=== PATIENT | male | born 1930 | race Caucasian/White ===

== ENCOUNTER 2018-02-10 14:36 | Inpatient (IN) | payer MEDICARE, BC ==
[2018-02-10] MEDS ORDERED: SODIUM CHLORIDE 0.9% 500 ML IV ONE (15:04)
[2018-02-10] MEDS ORDERED: SODIUM CHLORIDE 0.9% 1,000 ML IV ONE (15:04)
--- NOTE | 2018-02-10 15:07 | ED ---
General Adult HPI - General Chief complaint: Recheck/Abnormal Lab/Rx Stated complaint: Abnormal labs Time Seen by Provider: 02/10/18 14:53 Source: patient, RN notes reviewed, old records reviewed Mode of arrival: wheelchair Limitations: no limitations - History of Present Illness Initial comments: 87-year-old male presents for evaluation of abnormal outpatient labs. Patient was told to present to the emergency department. He is uncertain of what labs were abnormal. He has recent history of bladder mass status post radiation. He is not currently on chemo or radiation for this. He states he was seen by urology and had cystoscopy which was reported as normal. Patient has had no chest pain or shortness of breath. No fever or chills. He has urinated this morning however he states this was low volume. According to his he has not been eating and drinking well. No history of vomiting or diarrhea. No history of hematuria or dysuria. - Related Data Home Medications Medication Instructions Recorded Confirmed Aspirin EC [Ecotrin Low Dose] 81 mg PO DAILY 08/11/17 02/10/18 Atorvastatin [Lipitor] 40 mg PO HS 08/11/17 02/10/18 Benazepril HCl 20 mg PO DAILY 08/11/17 02/10/18 Donepezil [Aricept] 10 mg PO HS 08/11/17 02/10/18 Omeprazole 20 mg PO HS 08/11/17 02/10/18 amLODIPine [Norvasc] 5 mg PO HS 08/11/17 02/10/18 FLUoxetine HCL [PROzac] 10 mg PO DAILY 02/10/18 02/10/18 Ferrous Sulfate [Feosol] 325 mg PO DAILY 02/10/18 02/10/18 Previous Rx's Medication Instructions Recorded Multivitamins, Thera [Multivitamin] 1 tab PO DAILY #30 tablet 08/17/17 Thiamine [Vitamin B-1] 100 mg PO DAILY #30 tablet 08/17/17 Allergies Allergy/AdvReac Type Severity Reaction Status Date / Time Penicillins Allergy Swelling Verified 02/10/18 15:14 Review of Systems ROS Statement: Those systems with pertinent positive or pertinent negative responses have been documented in the HPI. ROS Other: All systems not noted in ROS Statement are negative. 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 but not sure which one-does'nt use any eye drops tumor on bladder History of Any Multi-Drug Resistant Organisms: None Reported Additional Past Surgical History / Comment(s): cataract removal Past Anesthesia/Blood Transfusion Reactions: No Reported Reaction Past Psychological History: No Psychological Hx Reported Smoking Status: Former smoker Past Alcohol Use History: Occasional Past Drug Use History: None Reported - Past Family History Mother Family Medical History: Cancer Additional Family Medical History / Comment(s): leukemia and "heart problems" Father Family Medical History: Coronary Artery Disease (CAD) Additional Family Medical History / Comment(s): "heart problems" General Exam Limitations: no limitations General appearance: alert, in no apparent distress Head exam: Present: atraumatic, normocephalic Eye exam: Present: normal appearance, PERRL, EOMI ENT exam: Present: normal exam Neck exam: Present: normal inspection. Absent: tenderness, meningismus Respiratory exam: Present: normal lung sounds bilaterally. Absent: respiratory distress, wheezes Cardiovascular Exam: Present: regular rate, normal rhythm GI/Abdominal exam: Present: soft. Absent: distended, tenderness, guarding Extremities exam: Present: normal inspection, normal capillary refill. Absent: pedal edema Neurological exam: Present: alert, oriented X3, CN II-XII intact. Absent: motor sensory deficit Psychiatric exam: Present: depressed, flat affect Skin exam: Present: warm, dry, intact. Absent: cyanosis, diaphoretic Course Vital Signs 02/10/18 14:44 Temperature 96.3 F L Pulse Rate 78 Respiratory 16 Rate Blood Pressure 96/50 O2 Sat by Pulse 92 L Oximetry EKG Findings - EKG Comments: EKG Findings:: EKG: Sinus bradycardia, rate of 51, MO interval 138, QRS duration 86, QTC 361 and is hyperacute T waves in the precordial leads. Medical Decision Making - Medical Decision Making Bedside ultrasound shows nondistended urinary bladder. 87-year-old male presenting with abnormal outpatient labs. His labs are repeated, do show a acute renal failure with a creatinine of 7.4, baseline of 2.4, BUNs elevated at 101. Patient has hyperkalemia at 6.2, with associated EKG changes. CO2 is low secondary to uremia. Chest x-ray clear. Bedside ultrasound shows a nondistended bladder, formal ultrasound gallbladder and kidneys will be obtained and is pending. Patient is given IV hydration, albuterol, Kayexalate, and calcium gluconate for hyperkalemia. Case discussed with Dr. Lin who will accept the admission. Patient will be admitted to [facility] on telemetry. Repeat laboratory studies will be obtained in the morning. - Lab Data Result diagrams: 02/10/18 15:31 02/10/18 15:31 Lab Results 02/10/18 02/10/18 02/10/18 Range/Units 15:31 15:31 15:31 WBC 3.4 L (3.8-10.6) k/uL RBC 3.46 L (4.30-5.90) m/uL Hgb 11.4 L (13.0-17.5) gm/dL Hct 35.5 L (39.0-53.0) % MCV 102.7 H (80.0-100.0) fL MCH 33.0 (25.0-35.0) pg MCHC 32.1 (31.0-37.0) g/dL RDW 14.0 (11.5-15.5) % Plt Count 107 L (150-450) k/uL Neutrophils % 81 % Lymphocytes % 8 % Monocytes % 7 % Eosinophils % 1 % Basophils % 0 % Neutrophils # 2.7 (1.3-7.7) k/uL Lymphocytes # 0.3 L (1.0-4.8) k/uL Monocytes # 0.2 (0-1.0) k/uL Eosinophils # 0.1 (0-0.7) k/uL Basophils # 0.0 (0-0.2) k/uL Macrocytosis Slight Sodium 143 (137-145) mmol/L Potassium 6.2 H* (3.5-5.1) mmol/L Chloride 112 H (98-107) mmol/L Carbon Dioxide 14 L (22-30) mmol/L Anion Gap 17 mmol/L BUN 101 H* (9-20) mg/dL Creatinine 7.40 H* (0.66-1.25) mg/dL Est GFR (CKD-EPI)AfAm 7 (>60 ml/min/1.73 sqM) Est GFR (CKD-EPI)NonAf 6 (>60 ml/min/1.73 sqM) Glucose 192 H (74-99) mg/dL Plasma Lactic Acid Chava 0.6 L (0.7-2.0) mmol/L Calcium 10.4 H (8.4-10.2) mg/dL Phosphorus 4.6 H (2.5-4.5) mg/dL Magnesium 1.9 (1.6-2.3) mg/dL Total Bilirubin 0.2 (0.2-1.3) mg/dL AST 16 L (17-59) U/L ALT 34 (21-72) U/L Alkaline Phosphatase 90 (38-126) U/L NT-Pro-B Natriuret Pep pg/mL Total Protein 6.5 (6.3-8.2) g/dL Albumin 3.9 (3.5-5.0) g/dL 02/10/18 Range/Units 15:31 WBC (3.8-10.6) k/uL RBC (4.30-5.90) m/uL Hgb (13.0-17.5) gm/dL Hct (39.0-53.0) % MCV (80.0-100.0) fL MCH (25.0-35.0) pg MCHC (31.0-37.0) g/dL RDW (11.5-15.5) % Plt Count (150-450) k/uL Neutrophils % % Lymphocytes % % Monocytes % % Eosinophils % % Basophils % % Neutrophils # (1.3-7.7) k/uL Lymphocytes # (1.0-4.8) k/uL Monocytes # (0-1.0) k/uL Eosinophils # (0-0.7) k/uL Basophils # (0-0.2) k/uL Macrocytosis Sodium (137-145) mmol/L Potassium (3.5-5.1) mmol/L Chloride (98-107) mmol/L Carbon Dioxide (22-30) mmol/L Anion Gap mmol/L BUN (9-20) mg/dL Creatinine (0.66-1.25) mg/dL Est GFR (CKD-EPI)AfAm (>60 ml/min/1.73 sqM) Est GFR (CKD-EPI)NonAf (>60 ml/min/1.73 sqM) Glucose (74-99) mg/dL Plasma Lactic Acid Chava (0.7-2.0) mmol/L Calcium (8.4-10.2) mg/dL Phosphorus (2.5-4.5) mg/dL Magnesium (1.6-2.3) mg/dL Total Bilirubin (0.2-1.3) mg/dL AST (17-59) U/L ALT (21-72) U/L Alkaline Phosphatase (38-126) U/L NT-Pro-B Natriuret Pep 90 pg/mL Total Protein (6.3-8.2) g/dL Albumin (3.5-5.0) g/dL Critical Care Time Critical Care Time: Yes Total Critical Care Time: 35 Disposition Clinical Impression: Acute renal failure, Hyperkalemia Disposition: ADMITTED IP TO THIS [facility] Condition: Serious Is patient prescribed a controlled substance at d/c from ED?: No Referrals: Latasha Harris MD [Primary Care Provider] - 1-2 days Decision to Admit Reason: Admit from EC Decision Date: 02/10/18 Decision Time: 16:39
[2018-02-10] MEDS: SODIUM CHLORIDE 0.9% 1,000 ML IV SCH ×3 (15:42→21:47)
[2018-02-10 15:53] LABS: Basophils % (A) 0 %; Eosinophils # (A) 0.1 k/uL (0-0.7); Eosinophils % (A) 1 %; HCT 35.5 % (39.0-53.0); HGB 11.4 gm/dL (13.0-17.5); Lymphocytes # (A) 0.3 k/uL (1.0-4.8); Lymphocytes % (A) 8 %; MCHC 32.1 g/dL (31.0-37.0); MCV 102.7 fL (80.0-100.0); Macrocytosis Slight; Mean Platelet Volume 7.3; Monocytes # (A) 0.2 k/uL (0-1.0); Monocytes % (A) 7 %; Neutrophils # (A) 2.7 k/uL (1.3-7.7); Neutrophils % (A) 81 %; Platelet Count 107 k/uL (150-450); RBC 3.46 m/uL (4.30-5.90); WBC 3.4 k/uL (3.8-10.6)
[2018-02-10 16:08] LABS: Albumin 3.9 g/dL (3.5-5.0); Calcium 10.4 mg/dL (8.4-10.2); Magnesium 1.9 mg/dL (1.6-2.3); Phosphorus 4.6 mg/dL (2.5-4.5); Total Bilirubin 0.2 mg/dL (0.2-1.3); Total Protein 6.5 g/dL (6.3-8.2)
[2018-02-10 16:10] LABS: Potassium 6.2 mmol/L (3.5-5.1)
[2018-02-10 16:14] LABS: Partial Thromboplastin Time 20.6 sec (22.0-30.0); Prothrombin Time 9.6 sec (9.0-12.0)
[2018-02-10] MEDS ORDERED: ALBUTEROL NEB (CONC) 2.5 MG/0.5 ML INHALATION ONE (16:20)
[2018-02-10] MEDS ORDERED: CALCIUM CHLORIDE 1,000 MG in SODIUM CHLORIDE 0.9% 100 ML IV ONE (16:20)
[2018-02-10] MEDS ORDERED: SODIUM POLYSTYRENE SULFONATE 15 GM/60 ML BOTTLE PO ONE (16:20)
--- NOTE | 2018-02-10 16:25 | XR ---
EXAMINATION TYPE: XR chest 2V DATE OF EXAM: 02/10/2018 COMPARISON: None HISTORY: 87-year-old male with weakness TECHNIQUE: PA and lateral views FINDINGS: Heart normal size. Mild elongation thoracic aorta. No consolidation or pleural effusion. IMPRESSION: No acute cardiopulmonary process.
[2018-02-10] MEDS ORDERED: ACETAMINOPHEN TAB 325 MG TAB PO PRN (16:34)
[2018-02-10] MEDS ORDERED: NALOXONE 0.4 MG/ML 1 ML VIAL IV PRN (16:34)
--- NOTE | 2018-02-10 17:53 | HP ---
HISTORY AND PHYSICAL DATE OF SERVICE: 02/10/2018 CHIEF COMPLAINT: Abnormal labs and weakness. HISTORY OF PRESENT ILLNESS: This 87-year-old gentleman with a past medical history of multiple medical problems including dementia, history of hypertension, history of prostate disease, also had bladder cancer. The patient had radiation treatment recently, the patient was also evaluated by Dr. Valdivia from Urology. The bladder was found to be small. The patient apparently was losing appetite and has diminished food intake and fluid intake according to the . The patient was feeling tired and weak. The patient taken to Dr. Harris's office. Because of abnormal labs the patient was transferred to the emergency room at this time at [facility]. The creatinine was found to be 7.40, baseline is around 3, and potassium 6.9, indicating severe hypokalemia. Insulin glucose regimen as well as albuterol updrafts as well as Kayexalate has been given. The patient is being admitted for evaluation and treatment. Urine output is markedly reduced. PAST MEDICAL HISTORY: Dementia, history of hypertension, hyperlipidemia, memory impairment. MEDICATIONS: Home medications are reviewed and include: 1. Norvasc 5 mg p.o. at bedtime. 2. Imodium. 3. Vitamin B1, 100 mg daily. 4. Omeprazole 20 mg. 5. Iron sulfate 325 mg daily. 6. Prozac 10 mg daily. 7. Aricept 10 mg at bedtime. 8. Benazepril 20 mg daily. 9. Lipitor 40 mg daily. 10.Ecotrin 81 mg daily. ALLERGIES: PENICILLIN. FAMILY HISTORY: History of cancer, leukemia, heart problems in the family. SOCIAL HISTORY: Previous history of smoking. Occasional alcohol intake. REVIEW OF SYSTEMS: ENT: Diminished hearing and vision. CARDIOVASCULAR: None. RESPIRATORY: As mentioned. GI: As mentioned. : As mentioned. ALLERGY/IMMUNOLOGY: No asthma or hayfever. MUSCULOSKELETAL: As mentioned earlier. HEMATOLOGY/ONCOLOGY: As mentioned earlier. ENDOCRINE: No history of diabetes or hypertension. CONSTITUTIONAL: As mentioned. DERMATOLOGIC: As mentioned. PSYCH: As mentioned. PHYSICAL EXAMINATION: GENERAL: Alert, oriented x2. Pulse 78, blood pressure 90/50, respirations 16, temperature 96.8, pulse ox 98% on 2 L nasal cannula. HEENT: Conjunctivae normal. Oral mucosa dry. NECK: No jugular venous distention. No lymph node enlargement. CARDIOVASCULAR: S1 and S2 muffled. LUNGS: Breath sounds diminished at the bases. Few scattered rhonchi and crackles. ABDOMEN: Soft, mild diffuse distention present. No guarding. No rigidity. No mass palpable. LEGS: No edema, no swelling. NERVOUS SYSTEM: Higher functions as mentioned earlier. Moves all four limbs. No focal deficits. SKIN: No rashes. LAB STUDIES: WBC 3.8, hemoglobin 7.5, MCV 102. Sodium 140, potassium 6.2, creatinine 7.4. ASSESSMENT: 1. Acute renal failure possible acute on chronic renal failure with prerenal factors and acute tubular necrosis secondary to diminished p.o. intake. 2. Hyperkalemia secondary to acute renal failure. 3. Metabolic acidosis secondary to renal failure. 4. Mild pancytopenia. 5. Bladder cancer. 6. Increased MCV. 7. History of hypertension. 8. Hyperlipidemia next history of dementia. 9. History of cataracts. 10.History of glaucoma. 11.Mild to moderate protein calorie malnutrition, BMI of 19.2. 12.FULL CODE. RECOMMENDATIONS: This 87-year-old gentleman who presented with multiple complex medical issues. We will monitor the patient closely, continue the current medications and symptomatic treatment. We will initiate IV fluids cautiously. Also continue to monitor closely. Nephrology evaluation. Otherwise bladder scan as mentioned earlier. I would also recommend ultrasound of the abdomen to rule out the possibility of hydronephrosis. Repeat labs. Resume home medications. Avoid nephrotoxic medications. Prognosis guarded because of multiple complex medical issues. Discussed with the patient and family who understand. Further recommendation to follow. MMODL / IJN: [id number] /
[2018-02-10] MEDS ORDERED: NON-FORMULARY DRUG (Omeprazole [Omeprazole] 20 MG) PO SCH (21:00)
--- NOTE | 2018-02-10 21:08 | US ---
EXAMINATION TYPE: US renals and bladder DATE OF EXAM: 02/10/2018 COMPARISON: NONE CLINICAL HISTORY: Pain. Abnormal labs, exam done portable EXAM MEASUREMENTS: Right Kidney: 9.9 x 5.1 x 3.8 cm Left Kidney: 9.4 x 5.3 x 4.8 cm Right Kidney: mild to moderate hydro, inferior pole obscured by rib shadowing and overlying bowel gas Left Kidney: visualized portions appear wnl, limited by rib shadowing and overlying bowel gas Bladder: thickened irregular wall Bilateral Jets seen: no Prostate: appears mildly enlarged There is no evidence for hydronephrosis at this point in time. No nephrolithiasis is seen. No amy s are identified. The urinary bladder is anechoic. Bilateral ureteral jets are seen. IMPRESSION: Bladder wall is thickened consistent with cystitis. There is moderate right-sided hydronephrosis. No evidence of solid renal mass. Hydronephrosis is probably not changed compared to the old CT scan of 10/11/2016.
[2018-02-10] MEDS: DONEPEZIL 10 MG TAB PO SCH (21:48)
[2018-02-10] MEDS: HEPARIN SODIUM,PORCINE 5,000 UNIT/ML 1 ML VIAL SQ SCH (21:48)
[2018-02-10] MEDS: ATORVASTATIN 40 MG TAB PO SCH (21:48)
[2018-02-10] MEDS: PANTOPRAZOLE 40 MG/10 ML VIAL IVP SCH (21:48)
[2018-02-10] MEDS ORDERED: ALPRAZolam 0.25 MG TAB PO SCH (22:00)
[2018-02-10] MEDS ORDERED: ALPRAZolam 0.25 MG TAB PO PRN (22:08)
[2018-02-11 04:08] LABS: Appearance,Urine Turbid (Clear); Bacteria,Urine Many /hpf; Bilirubin,Urine Negative (Negative); Blood,Urine Moderate (Negative); Color,Urine Yellow; Glucose,Urine (UA) Negative (Negative); Ketones,Urine Negative (Negative); Leukocyte Esterase,Urine Large (Negative); Nitrite,Urine Positive (Negative); Protein,Urine 3+ (Negative); RBC,Urine 83 /hpf (0-5); Specific Gravity,Urine 1.016 (1.001-1.035); Urobilinogen,Urine <2.0 mg/dL (<2.0); WBC,Urine >182 /hpf (0-5)
[2018-02-11] MEDS: SODIUM CHLORIDE 0.9% 1,000 ML IV SCH (06:20)
[2018-02-11 07:24] LABS: Basophils % (A) 0 %; Eosinophils # (A) 0.1 k/uL (0-0.7); Eosinophils % (A) 4 %; HCT 30.5 % (39.0-53.0); Lymphocytes # (A) 0.3 k/uL (1.0-4.8); Lymphocytes % (A) 9 %; MCH 32.9 pg (25.0-35.0); MCV 102.8 fL (80.0-100.0); Macrocytosis Slight; Monocytes # (A) 0.3 k/uL (0-1.0); Monocytes % (A) 10 %; Neutrophils # (A) 2.3 k/uL (1.3-7.7); Neutrophils % (A) 74 %; RBC 2.97 m/uL (4.30-5.90); RDW 13.9 % (11.5-15.5); WBC 3.1 k/uL (3.8-10.6)
[2018-02-11 07:26] LABS: HGB 9.8 gm/dL (13.0-17.5)
[2018-02-11 07:31] LABS: Calcium 9.6 mg/dL (8.4-10.2); Magnesium 1.6 mg/dL (1.6-2.3); Phosphorus 4.1 mg/dL (2.5-4.5); Potassium 4.9 mmol/L (3.5-5.1); Total Bilirubin 0.1 mg/dL (0.2-1.3); Total Protein 5.2 g/dL (6.3-8.2)
[2018-02-11 08:44] LABS: Platelet Count 89 k/uL (150-450)
[2018-02-11 08:48] LABS: Poikilocytosis (M) Present
[2018-02-11] MEDS: PANTOPRAZOLE 40 MG/10 ML VIAL IVP SCH (08:59)
[2018-02-11] MEDS: HEPARIN SODIUM,PORCINE 5,000 UNIT/ML 1 ML VIAL SQ SCH ×2 (09:00→20:31)
--- NOTE | 2018-02-11 10:17 | P.NPCON ---
History of Present Illness - Reason for Consult acute renal failure, hyperkalemia - History of Present Illness Reason for consultation: Acute kidney injury History of present illness: Patient is a 87-year-old male seen in new consultation for acute kidney injury. Creatinine was 7.4 on admission and is down to 6.12 today. He is currently receiving normal saline at 250 mL an hour. His creatinine in July 2017 was 2.4. He was also on lisinopril which is currently held. Patient presented to the hospital with confusion and abnormal labs. His potassium was also elevated at 6.2 which was medically treated and is down to 4.9 this morning. He remains acidotic with a bicarb level of 14. Patient is still quite confused and not a reliable historian. Chest x-ray revealed no evidence of fluid overload. Renal ultrasound revealed mild to moderate right-sided hydronephrosis which appears to be chronic. He has been voiding. Hemodynamically he is stable but low as blood pressure reading of 96/50 on admission. Blood pressure was 129/68 this morning. He denies use of NSAIDs. He does have history of bladder cancer and follows with urology as outpatient. He's had radiation treatments as outpatient. Vital signs are stable. General: The patient appeared well nourished and normally developed. HEENT: Head exam is unremarkable. Neck is without jugular venous distension. LUNGS: Lungs are clear to auscultation and percussion. Breath sounds decreased. HEART: Rate and Rhythm are regular. First and second heart sounds normal. No murmurs, rubs or gallops. ABDOMEN: Abdominal exam reveals normal bowel sounds. Non-tender and non- distended. No evidence of peritonitis. EXTREMITITES: No clubbing, cyanosis, or edema. 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 bladder CA with radiation in 10/2017 History of Any Multi-Drug Resistant Organisms: None Reported Additional Past Surgical History / Comment(s): cataract removal, removal of tumor in bladder Past Anesthesia/Blood Transfusion Reactions: No Reported Reaction Past Psychological History: No Psychological Hx Reported Additional Psychological History / Comment(s): pt is marreid, independant. no medical equipment used. no home cares services. 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 Smoking Status: Former smoker Past Alcohol Use History: Occasional Additional Past Alcohol Use History / Comment(s): started smoking at age 13(1943 ) and quit 1961-a pack would last 3 days Past Drug Use History: None Reported - Past Family History Mother Family Medical History: Cancer Additional Family Medical History / Comment(s): leukemia and "heart problems" Father Family Medical History: Coronary Artery Disease (CAD) Additional Family Medical History / Comment(s): "heart problems" Medications and Allergies Home Medications Medication Instructions Recorded Confirmed Type Aspirin EC [Ecotrin Low Dose] 81 mg PO DAILY 08/11/17 02/10/18 History Atorvastatin [Lipitor] 40 mg PO HS 08/11/17 02/10/18 History Benazepril HCl 20 mg PO DAILY 08/11/17 02/10/18 History Donepezil [Aricept] 10 mg PO HS 08/11/17 02/10/18 History Omeprazole 20 mg PO HS 08/11/17 02/10/18 History amLODIPine [Norvasc] 5 mg PO HS 08/11/17 02/10/18 History Multivitamins, Thera [Multivitamin] 1 tab PO DAILY #30 tablet 08/17/17 02/10/18 Rx Thiamine [Vitamin B-1] 100 mg PO DAILY #30 tablet 08/17/17 02/10/18 Rx FLUoxetine HCL [PROzac] 10 mg PO DAILY 02/10/18 02/10/18 History Ferrous Sulfate [Feosol] 325 mg PO DAILY 02/10/18 02/10/18 History Tamsulosin [Flomax] 0.4 mg PO DAILY 02/10/18 02/10/18 History Allergies Allergy/AdvReac Type Severity Reaction Status Date / Time Penicillins Allergy Swelling Verified 02/10/18 15:14 Physical Exam Vitals: Vital Signs Temp Pulse Pulse Resp BP BP Pulse Ox 02/11/18 04:00 97.0 F L 81 18 129/60 97 02/11/18 00:00 97.6 F 71 18 116/56 98 02/10/18 20:00 97.0 F L 71 18 120/60 97 02/10/18 19:40 67 17 110/68 93 L 02/10/18 17:39 66 02/10/18 17:12 56 L 18 106/54 99 02/10/18 17:05 59 L 02/10/18 16:50 63 02/10/18 14:44 96.3 F L 78 16 96/50 92 L Intake and Output 02/10/18 02/11/18 02/11/18 22:59 06:59 14:59 Intake Total 1600 1200 Output Total 200 600 Balance 1600 1000 -600 Intake: IV 100 1200 Calcium Chloride 1,000 mg 100 1200 In Sodium Chloride 0.9% 100 ml @ 400 mls/hr IV ONCE ONE Rx#:[id number] Intake, IV Titration 1500 Amount Calcium Chloride 1,000 mg 1500 In Sodium Chloride 0.9% 100 ml @ 400 mls/hr IV ONCE ONE Rx#:[id number] Output: Urine 200 600 Other: Voiding Method Urinal Urinal # Voids 1 Weight 53.977 kg 54 kg Results - Lab Results Most recent lab results Calcium 9.6 mg/dL (8.4-10.2) 02/11/18 06:58 Phosphorus 4.1 mg/dL (2.5-4.5) 02/11/18 06:58 Magnesium 1.6 mg/dL (1.6-2.3) 02/11/18 06:58 02/11/18 06:58 02/11/18 06:58 Assessment and Plan Plan: Assessment: 1. Acute kidney injury secondary to ATN secondary to poor oral intake and further worsened with the use of SHINE inhibitor. Doubt the mild to moderate hydronephrosis on the right side is contributing to his renal failure at this time. Rule out urinary retention. Creatinine 7.4 on admission and down to 6.12 today. 2. Hyperkalemia secondary to acute kidney injury and metabolic acidosis further worsened with the use of SHINE inhibitor. Improved with medical management. 3. Hypernatremia secondary to lack of oral water intake. 4. Metabolic acidosis secondary to acute kidney injury. 5. Anemia. Rule out iron deficiency. 6. History of bladder cancer for which she follows with urology as outpatient. He is undergone radiation treatments as outpatient. 7. Mild to moderate right-sided hydronephrosis which appears to be chronic. 8. Rule out chronic kidney disease. Creatinine was near 2.4 in July 2017. Plan: Discontinue normal saline. Start D5W with 2 A of sodium bicarbonate to be run at 150 mL an hour - this solution is slightly hypotonic which will also help with hypernatremia as well as the metabolic acidosis. Check iron studies. Avoid nephrotoxic agents and hypotensive episodes. Check urine culture. Check bladder scan to rule out underlying urinary retention. Repeat electrolytes in the morning. Thank you for the consultation. I will continue to follow the patient with you during his hospital stay.
[2018-02-11] MEDS: DEXTROSE 5% IN WATER 1,000 ML with SODIUM BICARB (1 MEQ/ML) 100 ML IV SCH ×2 (12:21→20:30)
[2018-02-11] MEDS: THIAMINE 100 MG TAB PO SCH (12:22)
[2018-02-11] MEDS: MULTIVITAMINS, THERA 1 EACH TAB PO SCH (12:22)
[2018-02-11 16:18] LABS: Iron Saturation 31.82 (15.00-50.00)
[2018-02-11] MEDS: cefTRIAXone IN SWFI 1,000 MG/10 ML SYRINGE IVP SCH (16:33)
[2018-02-11] MEDS: PANTOPRAZOLE 40 MG TABLET PO SCH (16:34)
--- NOTE | 2018-02-11 17:58 | PN ---
PROGRESS NOTE DATE OF SERVICE: 02/11/2018 This 87-year-old gentleman who was admitted with acute renal failure also had diminished p.o. intake. The patient is being closely monitored at this time. Nephrology is following the patient closely. The creatinine was found to be 6.12 today. Potassium is 4.9. Sodium is still elevated at 148. Nephrology following the patient closely. UA showed possible UTI. Past medical history reviewed. Review of systems could not be taken. The patient is confused. CURRENT MEDICATIONS: Reviewed. They include: 1. Tylenol 650 q.6 p.r.n. 2. Xanax 0.25 t.i.d. 3. Lipitor. 4. Aricept. 5. Heparin. 6. Narcan. 7. Protonix. 8. Vitamin B1. PHYSICAL EXAMINATION: Patient is alert and oriented x1. Pulse 71, blood pressure 117/61, respiration 16, temperature 97.6, pulse ox 98% on room air. HEENT: Conjunctivae normal. Oral mucosa moist. NECK: No jugular venous distention. No carotid bruit. No lymph node enlargement. CARDIOVASCULAR SYSTEM: S1, S2 muffled. No S3. No S4. RESPIRATORY SYSTEM: Breath sounds diminished at the bases. A few scattered rhonchi and crackles. ABDOMEN: Soft, non-tender. No mass palpable. LEGS: No edema. No swelling. NERVOUS SYSTEM: Diffusely weak. LABS: WBC 3.1, hemoglobin 9.8, creatinine 6.2. UA noted. ASSESSMENT: 1. Acute renal failure, possibly secondary to acute on chronic renal failure with prerenal factors with acute tubular necrosis secondary to diminished oral intake. 2. Acute urinary tract infection, present on admission. 3. Hyperkalemia secondary to acute renal failure, present on admission. 4. Metabolic acidosis secondary to acute renal failure. 5. Mild pancytopenia. 6. Bladder cancer history. 7. Increased mean corpuscular volume. 8. History of hypertension. 9. Hyperlipidemia. 10.History of dementia. 11.Gait dysfunction. 12.History of cataracts. 13.History of glaucoma. 14.Mild to moderate protein-calorie malnutrition; body mass index of 19.2. 15.FULL CODE. RECOMMENDATIONS AND DISCUSSION: I recommend to continue current medication, continue symptomatic treatment. Continue with cautious IV fluids. The creatinine has shown some minimal improvement. Potassium has improved. Also I would recommend adding broad-spectrum IV antibiotics and obtain cultures. I would also recommend closely following with Nephrology. Guarded prognosis because of multiple complex medical issues. Further recommendations to follow. PT/OT evaluation. Possible ECF rehab. Discussed with the patient's at the bedside. Further recommendations to follow. NORA / LUNAN: [id number] /
[2018-02-11] MEDS: DONEPEZIL 10 MG TAB PO SCH (20:31)
[2018-02-11] MEDS: ATORVASTATIN 40 MG TAB PO SCH (20:31)
[2018-02-12] MEDS: DEXTROSE 5% IN WATER 1,000 ML with SODIUM BICARB (1 MEQ/ML) 100 ML IV SCH ×2 (05:54→09:31)
[2018-02-12 06:25] LABS: Basophils % (A) 0 %; Eosinophils # (A) 0.2 k/uL (0-0.7); Eosinophils % (A) 5 %; HCT 24.3 % (39.0-53.0); Lymphocytes # (A) 0.4 k/uL (1.0-4.8); Lymphocytes % (A) 12 %; MCH 33.2 pg (25.0-35.0); MCHC 33.4 g/dL (31.0-37.0); MCV 99.5 fL (80.0-100.0); Mean Platelet Volume 7.1; Monocytes # (A) 0.3 k/uL (0-1.0); Monocytes % (A) 9 %; Neutrophils # (A) 2.2 k/uL (1.3-7.7); Neutrophils % (A) 70 %; RBC 2.45 m/uL (4.30-5.90); RDW 14.2 % (11.5-15.5); WBC 3.1 k/uL (3.8-10.6)
[2018-02-12 06:30] LABS: HGB 8.1 gm/dL (13.0-17.5); Platelet Count 90 k/uL (150-450)
[2018-02-12 06:35] LABS: Calcium 8.5 mg/dL (8.4-10.2); Potassium 3.6 mmol/L (3.5-5.1)
[2018-02-12] MEDS: PANTOPRAZOLE 40 MG TABLET PO SCH ×2 (06:50→17:33)
[2018-02-12] MEDS: cefTRIAXone IN SWFI 1,000 MG/10 ML SYRINGE IVP SCH (08:17)
[2018-02-12] MEDS: TAMSULOSIN 0.4 MG CAP.ER.24H PO SCH (08:18)
[2018-02-12] MEDS: HEPARIN SODIUM,PORCINE 5,000 UNIT/ML 1 ML VIAL SQ SCH ×2 (08:18→20:10)
[2018-02-12] MEDS: MULTIVITAMINS, THERA 1 EACH TAB PO SCH (08:19)
[2018-02-12] MEDS: THIAMINE 100 MG TAB PO SCH (08:19)
[2018-02-12] MEDS ORDERED: POTASSIUM CHLORIDE ER 20 MEQ TAB.ER PO STA (09:23)
--- NOTE | 2018-02-12 09:27 | P.PN ---
Subjective Patient is seen in follow for acute kidney injury. Creatinine was 7.4 on admission and is down to 4.3 today. He has been voiding. He was also hyperkalemic on admission which has resolved. He is currently maintained on hypotonic bicarb drip running at 1 50 mL an hour. States he does not feel hungry. Oral intake is just fair. No vomiting or diarrhea. Vital signs are stable. General: The patient appeared well nourished and normally developed. HEENT: Head exam is unremarkable. Neck is without jugular venous distension. LUNGS: Lungs are clear to auscultation and percussion. Breath sounds decreased. HEART: Rate and Rhythm are regular. First and second heart sounds normal. No murmurs, rubs or gallops. ABDOMEN: Abdominal exam reveals normal bowel sounds. Non-tender and non- distended. No evidence of peritonitis. EXTREMITITES: No clubbing, cyanosis, or edema. Objective - Vital Signs Vital signs: Vital Signs Temp 98.4 F 02/12/18 00:00 Pulse 73 02/12/18 04:00 Resp 18 02/12/18 04:00 BP 124/67 02/12/18 04:00 Pulse Ox 97 02/12/18 04:00 Intake & Output 02/11/18 02/12/18 02/12/18 18:59 06:59 18:59 Intake Total 250 Output Total 1650 350 Balance -1400 -350 Weight 54 kg 59.5 kg Intake: IV 10 Invasive Line 3 10 Oral 240 Output: Urine 1400 350 Post Void Residual 250 Other: Voiding Method Urinal Urinal # Voids 1 1 - Labs CBC & Chem 7: 02/12/18 06:06 02/12/18 06:06 Labs: Abnormal Lab Results - Last 24 Hours (Table) 02/11/18 02/12/18 02/12/18 Range/Units 06:58 06:06 06:06 WBC 3.1 L (3.8-10.6) k/uL RBC 2.45 L (4.30-5.90) m/uL Hgb 8.1 L D (13.0-17.5) gm/dL Hct 24.3 L (39.0-53.0) % Plt Count 90 L (150-450) k/uL Lymphocytes # 0.4 L (1.0-4.8) k/uL Chloride 111 H (98-107) mmol/L Carbon Dioxide 21 L (22-30) mmol/L BUN 69 H (9-20) mg/dL Creatinine 4.30 H (0.66-1.25) mg/dL Glucose 141 H (74-99) mg/dL TIBC 220 L (228-460) ug/dL Microbiology - Last 24 Hours (Table) 02/11/18 12:28 Urine Culture - Preliminary Urine,Clean Catch 02/10/18 15:31 Blood Culture - Preliminary Blood No Growth after 24 hours Assessment and Plan Plan: Assessment: 1. Acute kidney injury secondary to ATN secondary to poor oral intake and further worsened with the use of SHINE inhibitor. Doubt the mild to moderate hydronephrosis on the right side is contributing to his renal failure at this time. Creatinine 7.4 on admission and down to 4.3 today. 2. Hyperkalemia secondary to acute kidney injury and metabolic acidosis further worsened with the use of SHINE inhibitor. Improved with medical management. Now slightly hypokalemic which is related to bicarb infusion leading to transcellular shifting of potassium. 3. Hypernatremia secondary to lack of oral water intake. Improved. 4. Metabolic acidosis secondary to acute kidney injury. Improved. 5. Anemia. Iron replete. Possibly due to chronic kidney disease. 6. History of bladder cancer for which she follows with urology as outpatient. He is undergone radiation treatments as outpatient. 7. Mild to moderate right-sided hydronephrosis which appears to be chronic. 8. Rule out chronic kidney disease. Creatinine was near 2.4 in July 2017. Plan: Discontinue bicarb drip. Start normal saline at 100 mL an hour. Add oral sodium bicarbonate 650 mg twice daily. Add Aranesp. Avoid nephrotoxic agents and hypotensive episodes. Follow-up urine culture. Repeat electrolytes in the morning. Encourage oral intake.
[2018-02-12] MEDS ORDERED: DARBEPOETIN ALFA 40 MCG/0.4 ML SYRINGE SQ SCH (10:00)
[2018-02-12] MEDS: SODIUM CHLORIDE 0.9% 1,000 ML IV SCH ×2 (10:16→20:11)
[2018-02-12] MEDS: SODIUM BICARBONATE TAB 650 MG TAB PO SCH ×2 (10:16→20:10)
[2018-02-12] MEDS: MAGNESIUM SULFATE-D5W PMX 1 GM in DEXTROSE/WATER 1 100ML.BAG IVPB SCH ×3 (11:00→13:10)
--- NOTE | 2018-02-12 17:50 | PN ---
PROGRESS NOTE DATE OF SERVICE: 02/12/2018 This 87-year-old gentleman who was admitted with acute renal failure also had UTI and the patient also had hyperkalemia on admission. Patient had diminished p.o. intake. Creatinine has improved to 4.3. Patient is on cautious IV hydration at this time. No chest pain. No palpitations. No fever. The cultures are pending at this time. On exam, alert and oriented x3. The pulse is 64, blood pressure 107/58, respiration 18, temperature 98.6, pulse ox 94% on room air. HEENT: Conjunctivae normal. NECK: No jugular venous distention. CARDIOVASCULAR SYSTEM: S1, S2 muffled. RESPIRATORY SYSTEM: Breath sounds diminished at the bases. No rhonchi. No crackles. ABDOMEN: Soft, non-tender. LEGS: No edema. No swelling. NERVOUS SYSTEM: Mild diffuse weakness. LABS: WBC 3.1, hemoglobin 8.1, creatinine 4.30. ASSESSMENT: 1. Acute renal failure, possibly secondary to acute on chronic renal failure with prerenal factors with acute tubular necrosis secondary to diminished oral intake. 2. Acute urinary tract infection, present on admission. 3. Hyperkalemia secondary to acute renal failure, present on admission. 4. Metabolic acidosis secondary to acute renal failure. 5. Mild pancytopenia. 6. Bladder cancer history. 7. Increased mean corpuscular volume. 8. History of hypertension. 9. History of hyperlipidemia. 10.Dementia. 11.Gait dysfunction. 12.History of cataracts. 13.History of glaucoma. 14.Mild protein-calorie malnutrition; body mass index 19.2. 15.FULL CODE. RECOMMENDATIONS AND DISCUSSION: I recommend to continue current medication, continue symptomatic treatment. We will monitor the patient closely. Continue the IV fluids. Monitor creatinine closely. Closely follow with Nephrology. Guarded prognosis because of multiple complex medical issues.. Further recommendations to follow. MMODL / IJN: [id number] /
[2018-02-12] MEDS: ATORVASTATIN 40 MG TAB PO SCH (20:10)
[2018-02-12] MEDS: DONEPEZIL 10 MG TAB PO SCH (20:11)
[2018-02-13 06:06] LABS: Basophils % (A) 0 %; Eosinophils # (A) 0.2 k/uL (0-0.7); Eosinophils % (A) 6 %; HCT 25.5 % (39.0-53.0); HGB 8.3 gm/dL (13.0-17.5); Lymphocytes # (A) 0.5 k/uL (1.0-4.8); Lymphocytes % (A) 12 %; MCH 32.3 pg (25.0-35.0); MCHC 32.7 g/dL (31.0-37.0); MCV 98.7 fL (80.0-100.0); Mean Platelet Volume 7.9; Monocytes # (A) 0.2 k/uL (0-1.0); Monocytes % (A) 6 %; Neutrophils # (A) 2.8 k/uL (1.3-7.7); Neutrophils % (A) 73 %; RBC 2.58 m/uL (4.30-5.90); RDW 14.1 % (11.5-15.5); WBC 3.8 k/uL (3.8-10.6)
[2018-02-13 06:18] LABS: Calcium 8.2 mg/dL (8.4-10.2); Potassium 3.7 mmol/L (3.5-5.1)
[2018-02-13 06:24] LABS: Platelet Count 85 k/uL (150-450)
[2018-02-13] MEDS: PANTOPRAZOLE 40 MG TABLET PO SCH ×2 (06:27→16:59)
[2018-02-13] MEDS: SODIUM CHLORIDE 0.9% 1,000 ML IV SCH ×3 (06:29→20:51)
--- NOTE | 2018-02-13 08:12 | P.PN ---
Subjective Patient is seen in follow for acute kidney injury. Creatinine was 7.4 on admission and is down to 3.4 today. He has been voiding. He was also hyperkalemic on admission which has resolved. He is currently maintained on normal saline at 100 mL an hour. Oral intake is just fair. No vomiting or diarrhea. Hemodynamically stable. Urine culture positive for group D enterococcus. Vital signs are stable. General: The patient appeared well nourished and normally developed. HEENT: Head exam is unremarkable. Neck is without jugular venous distension. LUNGS: Lungs are clear to auscultation and percussion. Breath sounds decreased. HEART: Rate and Rhythm are regular. First and second heart sounds normal. No murmurs, rubs or gallops. ABDOMEN: Abdominal exam reveals normal bowel sounds. Non-tender and non- distended. No evidence of peritonitis. EXTREMITITES: No clubbing, cyanosis, or edema. Objective - Vital Signs Vital signs: Vital Signs Temp 97.2 F L 02/13/18 04:00 Pulse 55 L 02/13/18 04:00 Resp 14 02/13/18 04:00 BP 147/68 02/13/18 04:00 Pulse Ox 91 L 02/13/18 04:00 Intake & Output 02/12/18 02/13/18 02/13/18 18:59 06:59 18:59 Intake Total 100 400 Output Total 600 Balance -500 400 Weight 58.5 kg Intake: Intake, IV Titration 400 Amount Sodium Chloride 0.9% 1, 400 000 ml @ 100 mls/hr IV . Q10H [facility] Rx#:[id number] Oral 100 Output: Urine 600 Other: Voiding Method Urinal # Voids 1 1 # Bowel Movements 0 - Labs CBC & Chem 7: 02/13/18 05:54 02/13/18 05:54 Labs: Abnormal Lab Results - Last 24 Hours (Table) 02/12/18 02/13/18 02/13/18 Range/Units 06:06 05:54 05:54 RBC 2.58 L (4.30-5.90) m/uL Hgb 8.3 L (13.0-17.5) gm/dL Hct 25.5 L (39.0-53.0) % Plt Count 85 L (150-450) k/uL Lymphocytes # 0.5 L (1.0-4.8) k/uL Chloride 112 H (98-107) mmol/L Carbon Dioxide 21 L (22-30) mmol/L BUN 55 H (9-20) mg/dL Creatinine 3.40 H (0.66-1.25) mg/dL Glucose 103 H (74-99) mg/dL Calcium 8.2 L (8.4-10.2) mg/dL Magnesium 1.3 L (1.6-2.3) mg/dL Microbiology - Last 24 Hours (Table) 02/11/18 12:28 Urine Culture - Preliminary Urine,Clean Catch Group D Enterococcus 02/10/18 15:31 Blood Culture - Preliminary Blood No Growth after 48 hours Assessment and Plan Plan: Assessment: 1. Acute kidney injury secondary to ATN secondary to poor oral intake and further worsened with the use of SHINE inhibitor. Doubt the mild to moderate hydronephrosis on the right side is contributing to his renal failure at this time. Creatinine 7.4 on admission and down to 3.4 today. 2. Hyperkalemia secondary to acute kidney injury and metabolic acidosis further worsened with the use of SHINE inhibitor. Improved with medical management. Now slightly hypokalemic which is related to bicarb infusion leading to transcellular shifting of potassium. 3. Hypernatremia secondary to lack of oral water intake. Improved. 4. Metabolic acidosis secondary to acute kidney injury. Improved. 5. Anemia. Iron replete. Possibly due to chronic kidney disease. 6. History of bladder cancer for which she follows with urology as outpatient. He is undergone radiation treatments as outpatient. 7. Mild to moderate right-sided hydronephrosis which appears to be chronic. 8. Rule out chronic kidney disease. Creatinine was near 2.4 in July 2017. 9. UTI. Urine culture positive for group B enterococcus maintained on antibiotics. Plan: Continue normal saline at 100 mL an hour. Maintain oral sodium bicarbonate 650 mg twice daily. Continue Aranesp. Avoid nephrotoxic agents and hypotensive episodes. Repeat electrolytes in the morning. Encourage oral intake.
[2018-02-13] MEDS: THIAMINE 100 MG TAB PO SCH (08:18)
[2018-02-13] MEDS: cefTRIAXone IN SWFI 1,000 MG/10 ML SYRINGE IVP SCH (08:18)
[2018-02-13] MEDS: MULTIVITAMINS, THERA 1 EACH TAB PO SCH (08:18)
[2018-02-13] MEDS: TAMSULOSIN 0.4 MG CAP.ER.24H PO SCH (08:18)
[2018-02-13] MEDS: SODIUM BICARBONATE TAB 650 MG TAB PO SCH ×2 (08:18→20:51)
[2018-02-13] MEDS: HEPARIN SODIUM,PORCINE 5,000 UNIT/ML 1 ML VIAL SQ SCH ×2 (08:18→20:51)
[2018-02-13 13:45] VITALS: BMI 20.8
--- NOTE | 2018-02-13 14:30 | XR ---
EXAMINATION TYPE: XR chest 1V portable DATE OF EXAM: 02/13/2018 COMPARISON: 02/10/2018 INDICATION: Aspiration TECHNIQUE: Single frontal view of the chest is obtained. FINDINGS: The heart size is normal. The pulmonary vasculature is normal. The lungs are clear. IMPRESSION: 1. No acute pulmonary process.
--- NOTE | 2018-02-13 18:39 | PN ---
PROGRESS NOTE DATE OF SERVICE: 02/13/2018 This 87-year-old gentleman with a past medical history of multiple medical problems was admitted with a UTI as well as acute renal failure. The patient's is on IV fluids and sodium has improved significantly. The p.o. intake is also improving. A chest x-ray was done today which showed no acute pulmonary process. EXAM: Alert and oriented x3. Pulse 53, blood pressure 146/70, respirations 18, temperature 97.4, pulse ox 98% on room air. HEENT: Conjunctivae normal. NECK: No jugular venous distention. CARDIOVASCULAR: S1, S2 muffled. RESPIRATORY: Breath sounds diminished in the bases. A few scattered rhonchi and crackles. ABDOMEN: Soft, nontender. LEGS: No edema. NERVOUS SYSTEM: Nonfocal. LABS: WBC 3.8, hemoglobin is 8. Sodium 142, potassium 3.3, creatinine is 3.40. ASSESSMENT: 1. Acute renal failure, possibly secondary to acute on chronic renal failure with prerenal factors with acute tubular necrosis secondary to diminished p.o. intake. 2. Acute urinary tract infection present on admission. 3. Hyperkalemia secondary to acute renal failure, present on admission. 4. Metabolic acidosis secondary to acute renal failure. 5. Mild pancytopenia. 6. Bladder cancer history. 7. Increased MCV. 8. History of hypertension. 9. Hyperlipidemia. 10.Dementia. 11.Gait dysfunction. 12.History of cataracts. 13.History of glaucoma. 14.Mild protein-calorie malnutrition, body mass index 19.2. 15.FULL CODE. RECOMMENDATIONS AND DISCUSSION: Recommend to continue current medical management and continue symptomatic treatment with cautious IV fluids. Monitor closely with Nephrology. Guarded prognosis because of multiple problems. Encourage food. PT/OT evaluation, possible ECF rehab. Further recommendations to follow. Further recommendations to follow. MMODL / IJN: [id number] /
[2018-02-13] MEDS: DONEPEZIL 10 MG TAB PO SCH (20:51)
[2018-02-13] MEDS: ATORVASTATIN 40 MG TAB PO SCH (20:51)
[2018-02-14 06:28] LABS: Basophils % (A) 0 %; Eosinophils # (A) 0.3 k/uL (0-0.7); Eosinophils % (A) 7 %; HCT 23.7 % (39.0-53.0); HGB 7.8 gm/dL (13.0-17.5); Lymphocytes # (A) 0.6 k/uL (1.0-4.8); Lymphocytes % (A) 12 %; MCH 32.8 pg (25.0-35.0); MCHC 33.2 g/dL (31.0-37.0); Mean Platelet Volume 6.8; Monocytes # (A) 0.3 k/uL (0-1.0); Monocytes % (A) 7 %; Neutrophils # (A) 3.3 k/uL (1.3-7.7); Neutrophils % (A) 72 %; Platelet Count 98 k/uL (150-450); RBC 2.39 m/uL (4.30-5.90); RDW 14.1 % (11.5-15.5); WBC 4.6 k/uL (3.8-10.6)
[2018-02-14 06:38] LABS: Potassium 3.6 mmol/L (3.5-5.1)
[2018-02-14] MEDS: PANTOPRAZOLE 40 MG TABLET PO SCH ×2 (07:05→19:00)
[2018-02-14] MEDS: cefTRIAXone IN SWFI 1,000 MG/10 ML SYRINGE IVP SCH (08:29)
[2018-02-14] MEDS: TAMSULOSIN 0.4 MG CAP.ER.24H PO SCH (08:30)
[2018-02-14] MEDS: SODIUM BICARBONATE TAB 650 MG TAB PO SCH ×2 (08:30→20:52)
[2018-02-14] MEDS: HEPARIN SODIUM,PORCINE 5,000 UNIT/ML 1 ML VIAL SQ SCH ×2 (08:30→20:52)
[2018-02-14 11:32] VITALS: RESP 16
[2018-02-14] MEDS: SODIUM CHLORIDE 0.9% 1,000 ML IV SCH (13:12)
[2018-02-14] MEDS: THIAMINE 100 MG TAB PO SCH (13:12)
[2018-02-14] MEDS: MULTIVITAMINS, THERA 1 EACH TAB PO SCH (13:12)
--- NOTE | 2018-02-14 15:13 | P.PN ---
Subjective Progress Note Date: 02/14/18 Seen and examined for the follow-up of acute kidney injury. Creatinine improving. Still not eating drinking as per the nursing staff. On IV fluids normal saline. at bedside Objective - Vital Signs Vital signs: Vital Signs Temp 98.4 F 02/14/18 03:12 Pulse 54 L 02/14/18 08:00 Resp 16 02/14/18 08:00 BP 155/71 02/14/18 08:00 Pulse Ox 94 L 02/14/18 08:00 Intake & Output 02/13/18 02/14/18 02/14/18 18:59 06:59 18:59 Intake Total 1037 240 0 Balance 1037 240 0 Weight 58.5 kg 59.8 kg Intake: Intake, IV Titration 800 Amount Sodium Chloride 0.9% 1, 800 000 ml @ 100 mls/hr IV . Q10H [facility] Rx#:[id number] Oral 237 240 0 Other: Voiding Method Toilet # Voids 4 - Exam Sitting in the bed no acute distress S1-S2 heard Abdomen soft No edema - Labs CBC & Chem 7: 02/14/18 05:33 02/14/18 05:33 Labs: Abnormal Lab Results - Last 24 Hours (Table) 02/14/18 02/14/18 Range/Units 05:33 05:33 RBC 2.39 L (4.30-5.90) m/uL Hgb 7.8 L (13.0-17.5) gm/dL Hct 23.7 L (39.0-53.0) % Plt Count 98 L (150-450) k/uL Lymphocytes # 0.6 L (1.0-4.8) k/uL Sodium 146 H (137-145) mmol/L Chloride 115 H (98-107) mmol/L BUN 42 H (9-20) mg/dL Creatinine 2.86 H (0.66-1.25) mg/dL Calcium 8.0 L (8.4-10.2) mg/dL Microbiology - Last 24 Hours (Table) 02/11/18 12:28 Urine Culture - Final Urine,Clean Catch Enterococcus faecalis 02/10/18 15:31 Blood Culture - Preliminary Blood No Growth after 72 hours Assessment and Plan Assessment: Impression: #1 acute kidney injury secondary to hemodynamic ATN creatinine improving. #2 hypernatremia secondary to normal saline #3 metabolic acidosis on sodium bicarbonate #4 history of bladder cancer #5 chronic [id number] right [place] #6 urinary tract infection Recommendations: #1 stop normal saline, changed to D5 water. #2 anticipate recovery of renal function slowly #3 supportive care avoid nephrotoxic agents.
[2018-02-14] MEDS: DEXTROSE 5% IN WATER 1,000 ML IV SCH (17:06)
--- NOTE | 2018-02-14 19:34 | PN ---
PROGRESS NOTE DATE OF SERVICE: 02/14/2018. INTERVAL HISTORY: This 87-year-old gentleman who was admitted with acute renal failure also has complaints of some dysphagia. No chest pain. No palpitations. No fever. PHYSICAL EXAM: Alert and oriented x3. Pulse is 60, blood pressure 130/60, respirations 18, temperature 98 degrees, pulse ox 94% on room air. HEENT: Conjunctivae normal. Oral mucosa moist. NECK: No jugular venous distention. No carotid bruits. No lymph node enlargement. CARDIOVASCULAR: S1, S2 muffled. RESPIRATORY: Breath sounds diminished in the bases. A few scattered rhonchi. No crackles. ABDOMEN: Soft, nontender. LEGS: No edema. NERVOUS SYSTEM: Diffusely weak. LABS: WBC 4.2, hemoglobin 7.2. Sodium 146, creatinine is 2.86. ASSESSMENT: 1. Acute renal failure possibly secondary to acute on chronic renal failure with prerenal factors exacerbated with acute tubular necrosis secondary to diminished p.o. intake. 2. Acute urinary tract infection, present on admission. 3. Hyperkalemia secondary to acute renal failure, present on admission. 4. Dysphagia for evaluation. 5. Metabolic acidosis secondary to acute renal failure. 6. Gait dysfunction. 7. Mild pancytopenia. 8. Bladder cancer history. 9. Increased MCV. 10.History of hypertension. 11.Hyperlipidemia. 12.Dementia. 13.History of cataracts. 14.History of glaucoma. 15.Mild protein-calorie malnutrition with body mass index of 19.2. 16.FULL CODE. RECOMMENDATIONS AND DISCUSSION: Recommend to continue current medical management and symptomatic treatment. Otherwise at this time, I recommend monitoring the patient closely. Creatinine is improved to 0.86; however, I would recommend to continue current medications. I would also recommend a barium swallow also to evaluate further dysphagia, PT/OT evaluation. At this time, the family would like to take the patient home if the patient is improving and further recommendations to follow. MMODL / IJN: [id number] /
[2018-02-14] MEDS: DONEPEZIL 10 MG TAB PO SCH (20:53)
[2018-02-14] MEDS: ATORVASTATIN 40 MG TAB PO SCH (20:53)
[2018-02-15 05:57] VITALS: BP 158/78; PULSE 50; TEMP 98
[2018-02-15 07:00] LABS: Basophils % (A) 0 %; Eosinophils # (A) 0.3 k/uL (0-0.7); Eosinophils % (A) 7 %; HGB 8.1 gm/dL (13.0-17.5); Lymphocytes # (A) 0.7 k/uL (1.0-4.8); Lymphocytes % (A) 14 %; MCH 32.5 pg (25.0-35.0); MCHC 32.3 g/dL (31.0-37.0); MCV 100.6 fL (80.0-100.0); Macrocytosis Slight; Mean Platelet Volume 7.2; Monocytes # (A) 0.3 k/uL (0-1.0); Monocytes % (A) 7 %; Neutrophils # (A) 3.4 k/uL (1.3-7.7); Neutrophils % (A) 70 %; Platelet Count 104 k/uL (150-450); RBC 2.48 m/uL (4.30-5.90); RDW 14.4 % (11.5-15.5); WBC 4.8 k/uL (3.8-10.6)
[2018-02-15 07:16] LABS: Calcium 8.2 mg/dL (8.4-10.2); Potassium 3.7 mmol/L (3.5-5.1)
[2018-02-15] MEDS: HEPARIN SODIUM,PORCINE 5,000 UNIT/ML 1 ML VIAL SQ SCH (07:42)
[2018-02-15] MEDS: SODIUM BICARBONATE TAB 650 MG TAB PO SCH (07:42)
[2018-02-15] MEDS: TAMSULOSIN 0.4 MG CAP.ER.24H PO SCH (07:42)
[2018-02-15] MEDS: PANTOPRAZOLE 40 MG TABLET PO SCH (07:42)
[2018-02-15] MEDS: cefTRIAXone IN SWFI 1,000 MG/10 ML SYRINGE IVP SCH (08:00)
[2018-02-15] MEDS: DEXTROSE 5% IN WATER 1,000 ML IV SCH (08:05)
[2018-02-15] MEDS: MULTIVITAMINS, THERA 1 EACH TAB PO SCH (13:19)
[2018-02-15] MEDS: THIAMINE 100 MG TAB PO SCH (13:19)
--- NOTE | 2018-02-15 13:40 | P.PN ---
Subjective Progress Note Date: 02/15/18 Seen and examined for the follow-up of acute kidney injury. Feels better. Eating better than before Objective - Vital Signs Vital signs: Vital Signs Temp 98.0 F 02/15/18 05:20 Pulse 50 L 02/15/18 07:54 Resp 16 02/15/18 07:54 BP 158/78 02/15/18 05:20 Pulse Ox 96 02/15/18 05:20 Intake & Output 02/14/18 02/15/18 02/15/18 18:59 06:59 18:59 Intake Total 0 1190 Balance 0 1190 Weight 59.8 kg Intake: Intake, IV Titration 400 Amount Dextrose 5% in Water 1, 400 000 ml @ 50 mls/hr IV . Q20H [facility] Rx#:[id number] Oral 0 790 Other: Voiding Method Toilet Toilet Toilet # Voids 5 2 - Exam Sitting in the bed no acute distress S1-S2 heard Abdomen soft No edema - Labs CBC & Chem 7: 02/15/18 06:20 02/15/18 06:20 Labs: Abnormal Lab Results - Last 24 Hours (Table) 02/15/18 02/15/18 Range/Units 06:20 06:20 RBC 2.48 L (4.30-5.90) m/uL Hgb 8.1 L (13.0-17.5) gm/dL Hct 25.0 L (39.0-53.0) % MCV 100.6 H (80.0-100.0) fL Plt Count 104 L (150-450) k/uL Lymphocytes # 0.7 L (1.0-4.8) k/uL Chloride 112 H (98-107) mmol/L BUN 36 H (9-20) mg/dL Creatinine 2.59 H (0.66-1.25) mg/dL Glucose 118 H (74-99) mg/dL Calcium 8.2 L (8.4-10.2) mg/dL Microbiology - Last 24 Hours (Table) 02/10/18 15:31 Blood Culture - Preliminary Blood No Growth after 96 hours Assessment and Plan Assessment: Impression: #1 acute kidney injury secondary to hemodynamic ATN creatinine at baseline #2 hypernatremia secondary to normal saline, improving #3 metabolic acidosis on sodium bicarbonate #4 history of bladder cancer #5 chronic ywuz-[id number] right [place] #6 urinary tract infection Recommendations: #1 renal function stable at baseline. #2 Stable from nephrology point of view for discharge to be followed up in the office in 2 weeks
--- NOTE | 2018-02-16 05:41 | DS ---
DISCHARGE SUMMARY DATE OF SERVICE: 02/15/2018. FINAL DIAGNOSES: 1. Acute renal failure possibly secondary to acute on chronic renal failure with prerenal factors exacerbated with acute tubular necrosis secondary to diminished p.o. intake. 2. Acute urinary tract infection present on admission. 3. Hyperkalemia secondary to acute dysphagia, improved. 4. Metabolic acidosis secondary to acute renal failure. 5. Gait dysfunction. 6. Mild pancytopenia. 7. Bladder cancer history. 8. Increased MCV. 9. History of hypertension. 10.Hyperlipidemia. 11.Dementia. 12.History of cataract. 13.History of glaucoma. 14.Mild protein calorie malnutrition with body mass index 19.8. 15.FULL CODE. DISCHARGE DISPOSITION: The patient is being discharged in stable condition with guarded prognosis. Total time taken 35 minutes. HISTORY OF PRESENT ILLNESS: This 87-year-old gentleman with a past medical history of multiple medical problems admitted with acute renal failure, UTI and multiple other complex medical issues as listed above. Patient treated symptomatically. Patient improved significantly. Possibility of rehab was also considered but at this time the and the patient would like to return home. On exam, vital signs stable. Cardiovascular S1, S2. Respirations: A few rhonchi. Abdomen soft, nontender. Central nervous system: Mild diffuse weakness. DISCHARGE ADVICE AND MEDICATIONS: 1. Diet is cardiac diet. 2. Activity limited until followup. 3. Follow up with Dr. Harris in 2-3 days. 4. Follow with Nephrology as advised. MEDICATIONS: 1. Tylenol 650 q.6h p.r.n. 2. Norvasc 5 mg q.h.s. 3. Ecotrin 81 mg p.o. daily. 4. Lipitor 40 mg q.h.s. 5. Ceftin 500 mg p.o. b.i.d. for 3 more days. 6. Aricept 10 mg q.h.s. 7. Prozac 10 mg daily. 8. Folic acid 1 mg. 9. Multivitamins 1 p.o. daily. 10.Protonix 40 mg b.i.d. 11.Sodium bicarb 650 p.o. b.i.d. 12.Flomax 0.4 daily. 13.Vitamin B1 100 mg p.o. daily. Once again, the patient is being discharged in stable condition with guarded prognosis. The creatinine improved to 2.4. MMODL / IJN: [id number] / MTDD
--- NOTE | 2018-02-19 17:33 | CDI ---
Last Revision, August 2017 Documentation Clarification Form Date: 02/19/18 From: Neli Wolf Phone: If you have a question regarding this query, please contact Becki Champagne at [phone] between 8am and 5pm. Admit Date: 02/10/2018 4:34:00 PM Patient Name: Malik Garcia Visit Number: [id number] Discharge Date: 02/15/18 ATTENTION: The Clinical Documentation Specialists (CDI) and [facility] Coding Staff appreciate your assistance in clarifying documentation. Please respond to the clarification below the line at the bottom and electronically sign. The CDI & [facility] Coding staff will review the response and follow-up if needed. Please note: Queries are made part of the Legal Health Record. If you have any questions, please contact the author of this message via ITS. Dr. Suleiman Gilliam Patient presented with acute renal failure, hyperkalemia and possible CKD. History/Risk Factors: Hypertension Clinical Indicators: Hyperkalemia and elevated Creatinine/GFR Current BUN/CR/GFR: 101/7.40/6 Patients Baseline: BUN/CR/GFR: Not documented. Patients medications include: IVF: Sodium chloride 1,000 mls @ 999 mls/hr In order to capture the severity of condition, please clarify if the condition signifies: CKD Stage 1 (GFR > 90) CKD Stage 2 (GFR 60-89) CKD Stage 3 (GFR 30-59) CKD Stage 4 (GFR 15-29) CKD Stage 5 (GFR <15) ESRD Other, please specify Unable to determine unable to determine since baseline not documented MTDD
== END 2018-02-15 13:58 | DRG 683 ==
LOC: EC 14:36 → 6SEL 16:34 → 5MS5E 02-14 17:30
PROVIDERS: ADMIT Hospitalist; ATTEND Hospitalist
DX: N17.0 Acute kidney failure with tubular necrosis (principal); D61.818 Other pancytopenia; E44.0 Moderate protein-calorie malnutrition; E87.0 Hyperosmolality and hypernatremia; E87.2 Acidosis; N39.0 Urinary tract infection, site not specified; Z68.1 Body mass index [BMI] 19.9 or less, adult; E78.5 Hyperlipidemia, unspecified; E87.5 Hyperkalemia; E87.6 Hypokalemia; F03.90 Unspecified dementia, unspecified severity, without behavioral disturbance, psychotic disturbance, mood disturbance, and anxiety; H40.9 Unspecified glaucoma; N13.30 Unspecified hydronephrosis; R13.10 Dysphagia, unspecified; N42.9 Disorder of prostate, unspecified; R26.9 Unspecified abnormalities of gait and mobility; B95.2 Enterococcus as the cause of diseases classified elsewhere; H91.90 Unspecified hearing loss, unspecified ear; H54.7 Unspecified visual loss; I10 Essential (primary) hypertension; N18.9 Chronic kidney disease, unspecified; T46.4X5A Adverse effect of angiotensin-converting-enzyme inhibitors, initial encounter; T47.1X5A Adverse effect of other antacids and anti-gastric-secretion drugs, initial encounter; Z92.3 Personal history of irradiation; Z87.891 Personal history of nicotine dependence; Z85.51 Personal history of malignant neoplasm of bladder; Z79.899 Other long term (current) drug therapy; Z79.82 Long term (current) use of aspirin; Z88.0 Allergy status to penicillin; Z98.42 Cataract extraction status, left eye; Z98.41 Cataract extraction status, right eye; Z96.1 Presence of intraocular lens; Z80.6 Family history of leukemia; Z82.49 Family history of ischemic heart disease and other diseases of the circulatory system; Y92.009 Unspecified place in unspecified non-institutional (private) residence as the place of occurrence of the external cause; Y92.239 Unspecified place in hospital as the place of occurrence of the external cause
CPT/HCPCS: 36415; 71045; 71046; 76770; 80048; 80053; 81001; 82728; 83540; 83550; 83605; 83735; 83880; 84100; 84439; 84443; 85025; 85027; 85610; 85730; 87040; 87077; 87086; 87186; 93005; 94644; 96361; 96365; 99213; 99285

== ENCOUNTER → 2018-02-10 | Outpatient (CLI) | payer MEDICARE, BC ==
[2018-02-10 12:37] LABS: HCT 34.9 % (39.0-53.0); HGB 11.3 gm/dL (13.0-17.5); Hypochromasia Slight; MCH 33.4 pg (25.0-35.0); MCHC 32.2 g/dL (31.0-37.0); MCV 103.7 fL (80.0-100.0); Macrocytosis Slight; Mean Platelet Volume 7.4; Platelet Count 106 k/uL (150-450); RBC 3.37 m/uL (4.30-5.90); RDW 13.9 % (11.5-15.5); WBC 3.8 k/uL (3.8-10.6)
[2018-02-10 12:59] LABS: Albumin 3.9 g/dL (3.5-5.0); Calcium 10.3 mg/dL (8.4-10.2); Potassium 6.1 mmol/L (3.5-5.1); Total Bilirubin 0.2 mg/dL (0.2-1.3); Total Protein 6.5 g/dL (6.3-8.2)
[2018-02-10 17:56] LABS: T4, Free (Free Thyroxine) 1.19 ng/dL (0.78-2.19)
== END | disposition home or self-care (01) ==
LOC: LABWHC1 11:47
PROVIDERS: ATTEND Radiology Radiation Oncology
DX: C67.0 Malignant neoplasm of trigone of bladder (principal); R53.83 Other fatigue
CPT/HCPCS: 36415; 80053; 84439; 84443; 85027

== ENCOUNTER → 2018-03-03 | Outpatient (CLI) | payer MEDICARE, BC ==
[2018-03-03 16:03] LABS: Calcium 8.7 mg/dL (8.4-10.2); Potassium 4.6 mmol/L (3.5-5.1)
== END | disposition home or self-care (01) ==
LOC: LABWHC1 14:08
PROVIDERS: ATTEND Internal Medicine
DX: N18.4 Chronic kidney disease, stage 4 (severe) (principal)
CPT/HCPCS: 36415; 80048

== ENCOUNTER → 2018-07-01 | Outpatient (CLI) | payer MEDICARE, BC ==
--- NOTE | 2018-07-01 14:38 | CT ---
EXAMINATION TYPE: CT abdomen pelvis wo con DATE OF EXAM: 07/01/2018 COMPARISON: CT abdomen pelvis 08/11/2017 HISTORY: Bladder cancer CT DLP: 253.2 mGycm Automated exposure control for dose reduction was used. TECHNIQUE: Helical acquisition of images from the lung bases through the pelvis. FINDINGS: Lack of contrast could compromise sensitivity. Coronary artery calcifications are present. LUNG BASES: No significant abnormality is appreciated. AORTA: No significant abnormality is appreciated. LIVER/GB: No significant abnormality is appreciated. PANCREAS: No significant abnormality is seen. SPLEEN: No significant abnormality is seen. ADRENALS: No significant abnormality is seen. KIDNEYS: Right-sided hydronephrosis and hydroureter are again seen. REPRODUCTIVE ORGANS: Prostate is enlarged. URINARY BLADDER: There is diffuse bladder wall thickening as noted on prior exam. BOWEL: No significant abnormality is seen. FREE AIR: No Free Air is visible. ASCITES: None visible. PELVIC ADENOPATHY: None visualized. RETROPERITONEAL ADENOPATHY: No Retroperitoneal Adenopathy visible. OSSEOUS STRUCTURES: Stable. Degenerative disc changes are present in the lumbar spine, there is a sp inal curvature. IMPRESSION: ABNORMAL BLADDER WALL THICKENING COMPATIBLE WITH PATIENT'S HISTORY OF BLADDER CARCINOMA, THERE IS PER SISTENT URETERAL OBSTRUCTION. LACK OF CONTRAST COULD LIMIT SENSITIVITY. PROSTATE ENLARGEMENT. NO SIGN IFICANT INTERVAL CHANGE IS EVIDENT.
== END ==
LOC: RADCTMAIN 11:59
PROVIDERS: ATTEND Radiology Radiation Oncology
DX: C67.0 Malignant neoplasm of trigone of bladder (principal); N40.0 Benign prostatic hyperplasia without lower urinary tract symptoms; Z92.3 Personal history of irradiation; Z87.891 Personal history of nicotine dependence
CPT/HCPCS: 74176

== ENCOUNTER 2019-02-08 12:45 | Inpatient (IN) | payer MEDICARE, BC ==
[2019-02-08 13:53] LABS: Anisocytosis Slight; Basophils % (A) 0 %; Eosinophils # (A) 0.1 k/uL (0-0.7); Eosinophils % (A) 1 %; HCT 26.2 % (39.0-53.0); Hypochromasia Moderate; Lymphocytes # (A) 0.3 k/uL (1.0-4.8); Lymphocytes % (A) 4 %; MCH 24.3 pg (25.0-35.0); MCHC 30.4 g/dL (31.0-37.0); MCV 79.8 fL (80.0-100.0); Mean Platelet Volume 7.4; Microcytosis Slight; Monocytes # (A) 0.5 k/uL (0-1.0); Monocytes % (A) 7 %; Neutrophils # (A) 6.3 k/uL (1.3-7.7); Neutrophils % (A) 84 %; Platelet Count 103 k/uL (150-450); RBC 3.29 m/uL (4.30-5.90); RDW 18.4 % (11.5-15.5); WBC 7.5 k/uL (3.8-10.6)
[2019-02-08 14:04] LABS: Partial Thromboplastin Time 31.9 sec (22.0-30.0); Prothrombin Time 10.6 sec (9.0-12.0)
--- NOTE | 2019-02-08 14:11 | ED ---
General Adult HPI - General Chief complaint: Weakness Stated complaint: weakness Time Seen by Provider: 02/08/19 13:28 Source: patient, family, RN notes reviewed, old records reviewed Mode of arrival: wheelchair Limitations: no limitations - History of Present Illness Initial comments: 88-year-old male presenting with increased generalized weakness and fatigue. Patient was seen by his primary care physician with this complaint since the emergency department with concern for possible low hemoglobin. Patient has had anemia in the past. He denies any bright red rectal bleeding, no melena. Symptoms have progressed over 5 days. There is no focal numbness or weakness. No complaint of headache. No chest pain or dyspnea. No fever or chills. He had one episode of vomiting yesterday but has tolerated food and liquids since then. Denies any pain complaints. Denies dysuria or hematuria. - Related Data Home Medications Medication Instructions Recorded Confirmed Atorvastatin [Lipitor] 40 mg PO HS 08/11/17 02/08/19 Donepezil [Aricept] 10 mg PO HS 08/11/17 02/08/19 amLODIPine [Norvasc] 5 mg PO HS 08/11/17 02/08/19 FLUoxetine HCL [PROzac] 10 mg PO DAILY 02/10/18 02/08/19 Tamsulosin [Flomax] 0.4 mg PO DAILY 02/10/18 02/08/19 Omeprazole 20 mg PO HS 02/08/19 02/08/19 Previous Rx's Medication Instructions Recorded Thiamine [Vitamin B-1] 100 mg PO DAILY #30 tablet 08/17/17 Allergies Allergy/AdvReac Type Severity Reaction Status Date / Time Penicillins Allergy Swelling Verified 02/08/19 13:38 Review of Systems ROS Statement: Those systems with pertinent positive or pertinent negative responses have been documented in the HPI. ROS Other: All systems not noted in ROS Statement are negative. 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 bladder CA with radiation in 10/2017 History of Any Multi-Drug Resistant Organisms: None Reported Past Surgical History: No Surgical Hx Reported Additional Past Surgical History / Comment(s): cataract removal, removal of tumor in bladder Past Anesthesia/Blood Transfusion Reactions: No Reported Reaction Past Psychological History: No Psychological Hx Reported Smoking Status: Former smoker Past Alcohol Use History: Rare Past Drug Use History: None Reported - Past Family History Mother Family Medical History: Cancer Additional Family Medical History / Comment(s): leukemia and "heart problems" Father Family Medical History: Coronary Artery Disease (CAD) Additional Family Medical History / Comment(s): "heart problems" General Exam Limitations: no limitations General appearance: alert, in no apparent distress Head exam: Present: atraumatic, normocephalic Eye exam: Present: normal appearance, PERRL ENT exam: Present: normal exam Neck exam: Present: normal inspection, tenderness. Absent: meningismus Respiratory exam: Present: normal lung sounds bilaterally. Absent: respiratory distress, wheezes Cardiovascular Exam: Present: regular rate, normal rhythm GI/Abdominal exam: Present: soft. Absent: distended, tenderness, guarding Extremities exam: Present: normal inspection, normal capillary refill. Absent: pedal edema Back exam: Present: normal inspection. Absent: full ROM, tenderness Neurological exam: Present: alert, oriented X3, CN II-XII intact. Absent: motor sensory deficit Psychiatric exam: Present: normal affect, normal mood Skin exam: Present: warm, dry, intact. Absent: cyanosis, diaphoretic Course Vital Signs 02/08/19 02/08/19 12:53 13:27 Temperature 98.6 F Pulse Rate 70 59 L Respiratory 18 16 Rate Blood Pressure 114/57 125/60 O2 Sat by Pulse 95 96 Oximetry EKG Findings - EKG Comments: EKG Findings:: EKG: Sinus bradycardia, rate 59, AL interval 134, QRS duration 82, QTC 390, no ST segment elevation Medical Decision Making - Medical Decision Making 88-year-old male presenting with increased generalized weakness and fatigue. Patient clinically appears dehydrated, dry mucous membranes. Concerned about anemia as patient does have history of chronic anemia. Hemoglobin is obtained, this is 8.0 which is stable for this patient, normal white blood cell count at 7.5. Creatinine has more than doubled his baseline early at 4.5 with a BUN of 70. He has urinalysis with greater than 180 white cells and 56 red cells. Culture is pending. Blood culture is pending. Patient started on IV antibiotics. He will be admitted for IV hydration. Diagnosis: Dehydration, acute kidney injury, UTI - Lab Data Result diagrams: 02/08/19 13:37 02/08/19 13:37 Lab Results 02/08/19 02/08/19 02/08/19 Range/Units 13:37 13:37 13:37 WBC 7.5 (3.8-10.6) k/uL RBC 3.29 L (4.30-5.90) m/uL Hgb 8.0 L (13.0-17.5) gm/dL Hct 26.2 L (39.0-53.0) % MCV 79.8 L (80.0-100.0) fL MCH 24.3 L (25.0-35.0) pg MCHC 30.4 L (31.0-37.0) g/dL RDW 18.4 H (11.5-15.5) % Plt Count 103 L (150-450) k/uL Neutrophils % 84 % Lymphocytes % 4 % Monocytes % 7 % Eosinophils % 1 % Basophils % 0 % Neutrophils # 6.3 (1.3-7.7) k/uL Lymphocytes # 0.3 L (1.0-4.8) k/uL Monocytes # 0.5 (0-1.0) k/uL Eosinophils # 0.1 (0-0.7) k/uL Basophils # 0.0 (0-0.2) k/uL Hypochromasia Moderate Anisocytosis Slight Microcytosis Slight PT (9.0-12.0) sec INR (<1.2) APTT (22.0-30.0) sec Sodium 140 (137-145) mmol/L Potassium 4.0 (3.5-5.1) mmol/L Chloride 107 (98-107) mmol/L Carbon Dioxide 21 L (22-30) mmol/L Anion Gap 12 mmol/L BUN 70 H (9-20) mg/dL Creatinine 4.52 H (0.66-1.25) mg/dL Est GFR (CKD-EPI)AfAm 12 (>60 ml/min/1.73 sqM) Est GFR (CKD-EPI)NonAf 11 (>60 ml/min/1.73 sqM) Glucose 104 H (74-99) mg/dL Plasma Lactic Acid Chava 0.9 (0.7-2.0) mmol/L Calcium 9.1 (8.4-10.2) mg/dL Magnesium 1.9 (1.6-2.3) mg/dL Total Bilirubin 0.7 (0.2-1.3) mg/dL AST 26 (17-59) U/L ALT 32 (21-72) U/L Alkaline Phosphatase 93 (38-126) U/L Total Protein 6.3 (6.3-8.2) g/dL Albumin 3.7 (3.5-5.0) g/dL Urine Color Urine Appearance (Clear) Urine pH (5.0-8.0) Ur Specific [place] (1.001-1.035) Urine Protein (Negative) Urine Glucose (UA) (Negative) Urine Ketones (Negative) Urine Blood (Negative) Urine Nitrite (Negative) Urine Bilirubin (Negative) Urine Urobilinogen (<2.0) mg/dL Ur Leukocyte Esterase (Negative) Urine RBC (0-5) /hpf Urine WBC (0-5) /hpf Urine WBC Clumps (None) /hpf 02/08/19 02/08/19 Range/Units 13:37 14:34 WBC (3.8-10.6) k/uL RBC (4.30-5.90) m/uL Hgb (13.0-17.5) gm/dL Hct (39.0-53.0) % MCV (80.0-100.0) fL MCH (25.0-35.0) pg MCHC (31.0-37.0) g/dL RDW (11.5-15.5) % Plt Count (150-450) k/uL Neutrophils % % Lymphocytes % % Monocytes % % Eosinophils % % Basophils % % Neutrophils # (1.3-7.7) k/uL Lymphocytes # (1.0-4.8) k/uL Monocytes # (0-1.0) k/uL Eosinophils # (0-0.7) k/uL Basophils # (0-0.2) k/uL Hypochromasia Anisocytosis Microcytosis PT 10.6 (9.0-12.0) sec INR 1.0 (<1.2) APTT 31.9 H (22.0-30.0) sec Sodium (137-145) mmol/L Potassium (3.5-5.1) mmol/L Chloride (98-107) mmol/L Carbon Dioxide (22-30) mmol/L Anion Gap mmol/L BUN (9-20) mg/dL Creatinine (0.66-1.25) mg/dL Est GFR (CKD-EPI)AfAm (>60 ml/min/1.73 sqM) Est GFR (CKD-EPI)NonAf (>60 ml/min/1.73 sqM) Glucose (74-99) mg/dL Plasma Lactic Acid Chava (0.7-2.0) mmol/L Calcium (8.4-10.2) mg/dL Magnesium (1.6-2.3) mg/dL Total Bilirubin (0.2-1.3) mg/dL AST (17-59) U/L ALT (21-72) U/L Alkaline Phosphatase (38-126) U/L Total Protein (6.3-8.2) g/dL Albumin (3.5-5.0) g/dL Urine Color Yellow Urine Appearance Turbid (Clear) Urine pH 6.0 (5.0-8.0) Ur Specific [place] 1.020 (1.001-1.035) Urine Protein 2+ H (Negative) Urine Glucose (UA) Negative (Negative) Urine Ketones Negative (Negative) Urine Blood Moderate H (Negative) Urine Nitrite Negative (Negative) Urine Bilirubin Negative (Negative) Urine Urobilinogen <2.0 (<2.0) mg/dL Ur Leukocyte Esterase Large H (Negative) Urine RBC 56 H (0-5) /hpf Urine WBC >182 H (0-5) /hpf Urine WBC Clumps Many H (None) /hpf Disposition Clinical Impression: Acute kidney injury, Dehydration, UTI (urinary tract infection), Anemia, Acute renal failure Disposition: ADMITTED IP TO THIS [facility] Condition: Stable Is patient prescribed a controlled substance at d/c from ED?: No Referrals: Latasha Harris MD [Primary Care Provider] - 1-2 days Decision to Admit Reason: Admit from EC Decision Date: 02/08/19 Decision Time: 15:11
[2019-02-08 14:18] LABS: Albumin 3.7 g/dL (3.5-5.0); Calcium 9.1 mg/dL (8.4-10.2); Magnesium 1.9 mg/dL (1.6-2.3); Total Bilirubin 0.7 mg/dL (0.2-1.3); Total Protein 6.3 g/dL (6.3-8.2)
--- NOTE | 2019-02-08 14:48 | XR ---
EXAMINATION TYPE: XR chest 2V DATE OF EXAM: 02/08/2019 COMPARISON: 02/13/2018 TECHNIQUE: PA and lateral views submitted. HISTORY: Weakness and pain FINDINGS: Heart size stable. Prominence the right paratracheal stripe is stable. Patient is slightly rotated. N o pneumothorax. Stable apical pleural thickening. Subsegmental linear changes at both lung bases. IMPRESSION: 1. Basilar linear changes more typical of atelectasis than pneumonia correlate clinically.
[2019-02-08 14:57] LABS: Appearance,Urine Turbid (Clear); Bilirubin,Urine Negative (Negative); Blood,Urine Moderate (Negative); Color,Urine Yellow; Glucose,Urine (UA) Negative (Negative); Ketones,Urine Negative (Negative); Leukocyte Esterase,Urine Large (Negative); Nitrite,Urine Negative (Negative); Protein,Urine 2+ (Negative); RBC,Urine 56 /hpf (0-5); Urobilinogen,Urine <2.0 mg/dL (<2.0); WBC,Urine >182 /hpf (0-5)
[2019-02-08] MEDS ORDERED: cefTRIAXone IN SWFI 1,000 MG/10 ML SYRINGE IVP STA (15:05)
[2019-02-08] MEDS ORDERED: ACETAMINOPHEN TAB 325 MG TAB PO PRN (15:11)
[2019-02-08] MEDS ORDERED: NALOXONE 0.4 MG/ML 1 ML VIAL IV PRN (15:11)
[2019-02-08] MEDS: SODIUM CHLORIDE 0.9% 1,000 ML IV SCH (16:02)
[2019-02-08] MEDS ORDERED: ACETAMINOPHEN TAB 500 MG TAB PO STA (16:04)
[2019-02-08 17:26] VITALS: BMI 22.0
--- NOTE | 2019-02-08 20:32 | HP ---
HISTORY AND PHYSICAL DATE OF SERVICE: 02/08/2019. CHIEF COMPLAINTS: Tiredness and weakness and abdominal pain. HISTORY: This 88-year-old gentleman with a past medical history of history of dementia, history of hypertension, hyperlipidemia, history of memory impairment, history of prostate disorder, history of bladder cancer with radiation treatments, UTI, history of right sided chronic hydronephrosis, history of glaucoma, history of bilateral cataract removal, being followed by Dr. Harris and Dr. Valdivia in the outpatient setting was noted to have some change in mental status. The patient also found to be very weak by the patient's . The patient also had a fever. The patient is vomiting. Because of multiple symptomatology, patient taken to [facility] and admitted for further evaluation and treatment. After admission, the patient was found to have creatinine of 4.52, hemoglobin was found to be 8, and UA was suggestive of urinary tract infection with WBC clumps and chest x-ray showed bibasilar atelectasis and the patient admitted for further evaluation and treatment. Currently the patient is slightly confused, unable to give a coherent history. Most of the history taken from my discussion with staff and review of chart and as well as discussion with the at the bedside. PAST MEDICAL HISTORY: Of dementia, history of hypertension, hyperlipidemia, history of memory impairment, history of UTI, chronic right-sided hydronephrosis, bladder cancer. MEDICATIONS: Prior to admission home medications are: 1. Norvasc 5 mg p.o. q.h.s. 2. Aricept 10 mg q.h.s. 3. Lipitor 40 mg q.h.s. 4. Vitamin B1 100 mg. 5. Flomax 0.4. 6. Omeprazole 20 mg q.h.s. 7. Prozac 10 mg daily. ALLERGIES: PENICILLIN. FAMILY HISTORY: History of cancer, leukemia and heart problems. SOCIAL HISTORY: Previous history smoking. No history of current smoking or alcohol intake. REVIEW OF SYSTEMS: ENT: Diminished vision and diminished hearing. CARDIO SYSTEM: No angina or palpitations. RESPIRATORY: As mentioned earlier. GASTROINTESTINAL: As mentioned earlier. as mentioned earlier. NERVOUS SYSTEM: As mentioned earlier. ALLERGY/IMMUNOLOGY: No asthma or hayfever. HEMATOLOGY/ONCOLOGY: No history of anemia. MUSCULOSKELETAL as mentioned earlier. CONSTITUTIONAL: As mentioned earlier. ENDOCRINE: No history of diabetes or hypothyroidism. DERMATOLOGY: Negative. RHEUMATOLOGY: Negative. PSYCHIATRY: As mentioned earlier. PHYSICAL EXAMINATION: GENERAL: The patient is alert and oriented x1. VITAL SIGNS: Pulse 67, blood pressure 118/62, respirations 16, temperature 99 degrees, pulse ox 94% on room air. HEENT is conjunctivae normal. Oral mucosa dry. NECK is no jugular venous distention. No carotid bruit. No lymph node enlargement. CARDIOVASCULAR SYSTEM: S1, S2 muffled. No S3, no S4. RESPIRATORY: Breath sounds diminished in the bases. A few scattered rhonchi and crackles. ABDOMEN: Soft. Mild diffuse discomfort on palpation. No guarding. No rigidity. No mass palpable. LEGS: No edema. No swelling. NERVOUS SYSTEM: Higher functions as mentioned earlier. Moves all 4 limbs. No focal motor deficit. LYMPHATICS: No lymph nodes palpable in the neck, axillae or groin. SKIN: No ulcer, no rash. No bleeding. JOINTS: No active deforming arthropathy. LABS: WBC 7.5, hemoglobin is 8. Sodium 140, potassium 4, creatinine is 4.52. UA noted. ASSESSMENT: 1. Acute on chronic renal failure with possible prerenal factors. 2. Acute urinary tract infection with sepsis, possibly. 3. Change in mental status, metabolic encephalopathy, acute on chronic. 4. Abdominal pain for evaluation. 5. Anemia, microcytic anemia of chronic disease and nutritional. 6. History of bladder cancer with radiation treatment. 7. History of chronic right-sided hydronephrosis. 8. History of glaucoma. 9. History of dementia. 10.Hypertension. 11.Hyperlipidemia. 12.History of prostate disorder and benign prostatic hypertrophy. 13.Mild protein calorie malnutrition history. 14.FULL CODE. 15.Remote history of nicotine dependence. RECOMMENDATIONS AND DISCUSSION: In this 88-year-old gentleman who presented with multiple complex medical issues, we will continue current medications, symptomatic treatment. We will initiate broad- spectrum IV antibiotics. Otherwise, I would also recommend to obtain cultures and continue to monitor. Nephrology has been consulted. Otherwise, resume the home medications. Guarded prognosis because of multiple complex medical issues. Further recommendations to follow. A copy of dictation is being forwarded to Dr. Harris, who is the primary physician. Repeat labs also recommended. The patient is not a candidate for any renal replacement therapy, but will try to manage the patient empirically. Cautiously hydrated the patient. The chest x-ray showed no evidence of any acute fluid overload. Further recommendations to follow. See orders for details. MMODL / IJN: [id number] /
[2019-02-08] MEDS: HEPARIN SODIUM,PORCINE 5,000 UNIT/ML 1 ML VIAL SQ SCH (20:59)
[2019-02-08] MEDS: risperiDONE 0.25 MG TAB PO PRN (21:00)
[2019-02-08] MEDS: amLODIPine 5 MG TAB PO SCH (21:00)
[2019-02-08] MEDS: PANTOPRAZOLE 40 MG TABLET PO SCH (21:00)
[2019-02-08] MEDS: DONEPEZIL 10 MG TAB PO SCH (21:00)
[2019-02-08] MEDS: ATORVASTATIN 40 MG TAB PO SCH (21:00)
[2019-02-09] MEDS: SODIUM CHLORIDE 0.9% 1,000 ML IV SCH ×2 (05:36→16:41)
[2019-02-09] MEDS: FLUoxetine HCL 10 MG CAP PO SCH (07:23)
[2019-02-09] MEDS: THIAMINE 100 MG TAB PO SCH (07:23)
[2019-02-09] MEDS: TAMSULOSIN 0.4 MG CAP.ER.24H PO SCH (07:23)
[2019-02-09] MEDS: HEPARIN SODIUM,PORCINE 5,000 UNIT/ML 1 ML VIAL SQ SCH ×2 (07:23→21:46)
[2019-02-09 10:10] LABS: Anisocytosis Slight; HCT 24.1 % (39.0-53.0); HGB 7.3 gm/dL (13.0-17.5); Hypochromasia Marked; MCH 24.5 pg (25.0-35.0); MCHC 30.1 g/dL (31.0-37.0); MCV 81.4 fL (80.0-100.0); Mean Platelet Volume 7.2; Microcytosis Slight; RBC 2.96 m/uL (4.30-5.90); RDW 18.3 % (11.5-15.5); WBC 4.5 k/uL (3.8-10.6)
[2019-02-09 10:35] LABS: Calcium 8.6 mg/dL (8.4-10.2); Potassium 4.1 mmol/L (3.5-5.1)
[2019-02-09 10:55] LABS: Band Neutrophils % 1 %; Lymphocytes # (M) 0.27 k/uL (1.0-4.8); Monocytes # (M) 0.27 k/uL (0-1.0); Neutrophils % (M) 87 %; Nucleated Red Blood Cells 0 /100 WBC (0-0); Total Cells Counted 100
[2019-02-09 10:56] LABS: Ovalocytes Present; Platelet Count 97 k/uL (150-450)
--- NOTE | 2019-02-09 11:27 | P.NPCON ---
History of Present Illness - Reason for Consult acute renal failure, chronic renal failure - History of Present Illness Reason for consultation: Acute kidney injury on chronic kidney disease History of present illness: Patient is a 88-year-old male seen in renal consultation for acute kidney injury on chronic kidney disease. Patient's creatinine in July 2017 was 2.4. In February 2018 his creatinine was 2.12. This admission was 4.52 and is down to 3.76 today. Patient presented to the hospital with generalized weakness. Patient is actually quite unsure as to why he came to the hospital. Denies chest pain or shortness of breath. No edema. Admits to good urine output. No hematuria or dysuria. No vomiting or diarrhea. He is currently maintained on normal saline at 75 mL an hour. Postvoid residual was 230 mL. Flomax has been resumed. Not on any nonsteroidals. No history of diabetes. Hemodynamically stable. Vital signs are stable. General: The patient appeared well nourished and normally developed. HEENT: Head exam is unremarkable. Neck is without jugular venous distension. LUNGS: Lungs are clear to auscultation and percussion. Breath sounds decreased. HEART: Rate and Rhythm are regular. First and second heart sounds normal. No murmurs, rubs or gallops. ABDOMEN: Abdominal exam reveals normal bowel sounds. Non-tender and non- distended. No evidence of peritonitis. EXTREMITITES: No clubbing, cyanosis, or edema. 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 History of Any Multi-Drug Resistant Organisms: None Reported Past Surgical History: No Surgical Hx Reported Additional Past Surgical History / Comment(s): Bilateral cataract removal, removal of tumor in bladder, colonoscopy. Past Anesthesia/Blood Transfusion Reactions: No Reported Reaction Past Psychological History: No Psychological Hx Reported Additional Psychological History / Comment(s): Pt resides with his spouse of 63 yrs. He is independant, no medical equipment used. No home cares services. 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 Smoking Status: Former smoker Past Alcohol Use History: Rare Additional Past Alcohol Use History / Comment(s): started smoking at age 13(1944) and quit 1961-a pack would last 3 days Past Drug Use History: None Reported - Past Family History Mother Family Medical History: Cancer Additional Family Medical History / Comment(s): leukemia and "heart problems" Father Family Medical History: Coronary Artery Disease (CAD) Additional Family Medical History / Comment(s): "heart problems" Medications and Allergies Home Medications Medication Instructions Recorded Confirmed Type Atorvastatin [Lipitor] 40 mg PO HS 08/11/17 02/08/19 History Donepezil [Aricept] 10 mg PO HS 08/11/17 02/08/19 History amLODIPine [Norvasc] 5 mg PO HS 08/11/17 02/08/19 History Thiamine [Vitamin B-1] 100 mg PO DAILY #30 tablet 08/17/17 02/08/19 Rx FLUoxetine HCL [PROzac] 10 mg PO DAILY 02/10/18 02/08/19 History Tamsulosin [Flomax] 0.4 mg PO DAILY 02/10/18 02/08/19 History Omeprazole 20 mg PO HS 02/08/19 02/08/19 History Allergies Allergy/AdvReac Type Severity Reaction Status Date / Time Penicillins Allergy Swelling Verified 02/08/19 13:38 Physical Exam Vitals: Vital Signs Temp Pulse Pulse Resp BP BP Pulse Ox 02/09/19 05:20 99.2 F 69 17 144/70 92 L 02/08/19 20:31 97.8 F 53 L 17 112/62 100 02/08/19 16:49 99.0 F 67 16 118/61 95 02/08/19 16:08 100.3 F H 63 16 129/65 95 02/08/19 13:27 59 L 16 125/60 96 02/08/19 12:53 98.6 F 70 18 114/57 95 Intake and Output 02/08/19 02/09/19 02/09/19 22:59 06:59 14:59 Other: Voiding Method Toilet Toilet # Voids 1 2 Results - Lab Results Most recent lab results Calcium 8.6 mg/dL (8.4-10.2) 02/09/19 09:40 Magnesium 1.9 mg/dL (1.6-2.3) 02/08/19 13:37 02/09/19 09:40 02/09/19 09:40 Assessment and Plan Plan: Assessment: 1. Acute kidney injury mostly prerenal improving with IV hydration. Creatinine was 4.52 admission and is 3.76 today. Rule out obstructive uropathy. 2. Chronic kidney disease stage IIIB/4. Creatinine was 2.4 in July 2017. He was 2.12 in February 2018. 3. Metabolic acidosis secondary to acute kidney injury. 4. History of right-sided hydronephrosis. 5. Anemia of chronic kidney disease. Rule out iron deficiency. 6. UTI. Maintained on antibiotics. 7. Hypertension with chronic kidney disease. Controlled. Plan: Maintain normal saline at 75 mL an hour. Follow-up urine culture. Check renal ultrasound. Continue to monitor serial postvoid residuals. Avoid nephrotoxins. Check iron studies. Repeat electrolytes in the morning. Thank you for the consultation. I will continue to follow the patient with you during his hospital stay.
--- NOTE | 2019-02-09 12:50 | PN ---
PROGRESS NOTE DATE OF SERVICE: 02/09/2019 This 88-year-old gentleman admitted with tiredness, weakness, and abdominal pain has possible acute on chronic renal failure as well as UTI with possible sepsis. The patient is on IV antibiotics. Patient is on cautious IV fluids, multiple consult: The patient closely the patient closely monitor. Cultures are pending at this time. PAST MEDICAL HISTORY: Reviewed. REVIEW OF SYSTEMS: CARDIOVASCULAR: No angina. RESPIRATION: As mentioned earlier. GI: As mentioned earlier : As mentioned earlier. NERVOUS SYSTEM: As mentioned earlier. CURRENT MEDICATIONS: 1. Tylenol 500-650 q.6 p.r.n. 2. Norvasc 5 mg q.h.s. 3. Lipitor 40 mg q.h.s. 4. Rocephin 1 g daily. 5. Aricept 10 mg q.h.s., Prozac 10 mg b.i.d. 6. Heparin subcu b.i.d. 7. Narcan 0.2 q.2h p.r.n. 8. Protonix 40 mg q.h.s. 9. Risperdal 0.125 mg q.h.s. p.r.n. 10.Flomax 0.4. 11.Vitamin D 100 mg p.o. daily. PHYSICAL EXAM: Patient is alert oriented x1. Pulse 69, blood pressure 144/70, respiration 17, temperature 99.2, pulse ox 98% on room air. HEENT: Conjunctivae normal. Oral mucosa moist. NECK: is no jugular VD no lymph enlargement. CARDIOVASCULAR: No stenosis pressure in the bases. A few scattered rhonchi. No crackles. ABDOMEN: Soft, nontender. No mass palpable legs no edema. No extremity edema nervous system: Higher functions as mentioned earlier moves all 4 limbs. No focal motor lymphatics none Clinic skin no ulcer in joints no active arthropathy. LAB STUDIES: WBC is 4.5, hemoglobin is 7.3, sodium 142, potassium 4.1, creatinine 3.76. ASSESSMENT: 1. Acute on chronic renal failure with possible prerenal factors. 2. Acute urinary tract infection with sepsis, possibly. 3. Change in mental status, metabolic encephalopathy, acute on chronic. 4. Abdominal pain for evaluation, possibly secondary to urinary tract infection. 5. Anemia, microcytic anemia of chronic disease and nutritional. 6. History of bladder cancer with radiation treatment. 7. History of chronic right-sided hydronephrosis. 8. History of glaucoma. 9. History of dementia. 10.Hypertension. 11.Hyperlipidemia. 12.History of prostate disorder with benign prostatic hypertrophy. 13.Mild protein calorie malnutrition history. 14.Remote history of nicotine dependence. 15.FULL CODE. RECOMMENDATION: Recommend to continue current management and symptomatic treatment. Creatinine is still elevated. I would continue the antibiotics, we are awaiting Nephrology evaluation. Prognosis guarded because of multiple complex medical issues. Further recommendations to follow. Repeat labs in the morning. Discussed with the family who understands this. Further recommendations to follow. This patient will require more than 2 nights stay hospitalization for evaluation and treatment of the above mentioned multiple complex medical issues in this elderly individual. MMODL / IJN: [id number] /
--- NOTE | 2019-02-09 13:57 | US ---
EXAMINATION TYPE: US kidneys/renal and bladder DATE OF EXAM: 02/09/2019 COMPARISON: NONE CLINICAL HISTORY: claire. CLAIRE EXAM MEASUREMENTS: Right Kidney: 10.2 x 5.4 x 4.7 cm Left Kidney: 9.8 x 5.8 x 3.9 cm Portable exam, done with pt sitting upright in chair Right Kidney: Mild hydronephrosis Left Kidney: Cortical thinning Bladder: Trabeculated appearance of the urinary bladder wall Bilateral Jets seen: Only left jet visualized The bilateral kidneys demonstrate diminished cortical medullary differentiation and bilateral cortica l renal thinning. No nephrolithiasis is seen. The prostate gland appears enlarged impressing upon the posterior urinary bladder. Urinary bladder is incompletely distended and suboptimally evaluated. IMPRESSION: 1. Mild right-sided hydronephrosis. 2. Sequela of chronic medical renal disease. 3. Partially visualized enlarged prostate gland that in combination with a trabeculated appearance of the urinary bladder wall suggest chronic urinary bladder outlet obstruction.
[2019-02-09 16:30] LABS: Iron Saturation 1.79 (15.00-50.00)
[2019-02-09] MEDS: PANTOPRAZOLE 40 MG TABLET PO SCH (21:45)
[2019-02-09] MEDS: DONEPEZIL 10 MG TAB PO SCH (21:46)
[2019-02-09] MEDS: ATORVASTATIN 40 MG TAB PO SCH (21:46)
[2019-02-09] MEDS: amLODIPine 5 MG TAB PO SCH (21:46)
[2019-02-10] MEDS: THIAMINE 100 MG TAB PO SCH (08:05)
[2019-02-10] MEDS: HEPARIN SODIUM,PORCINE 5,000 UNIT/ML 1 ML VIAL SQ SCH ×2 (08:05→22:02)
[2019-02-10] MEDS: SODIUM CHLORIDE 0.9% 1,000 ML IV SCH ×2 (08:05→22:03)
[2019-02-10] MEDS: FLUoxetine HCL 10 MG CAP PO SCH (08:05)
[2019-02-10] MEDS: TAMSULOSIN 0.4 MG CAP.ER.24H PO SCH (08:05)
[2019-02-10 09:43] LABS: Calcium 8.6 mg/dL (8.4-10.2); Potassium 3.9 mmol/L (3.5-5.1)
[2019-02-10 10:08] LABS: Anisocytosis Slight; HCT 24.7 % (39.0-53.0); HGB 7.2 gm/dL (13.0-17.5); Hypochromasia Marked; MCH 23.9 pg (25.0-35.0); MCHC 29.2 g/dL (31.0-37.0); MCV 81.9 fL (80.0-100.0); Mean Platelet Volume 8.1; Microcytosis Slight; Platelet Count 116 k/uL (150-450); RBC 3.02 m/uL (4.30-5.90); RDW 18.2 % (11.5-15.5)
[2019-02-10 10:42] LABS: Lymphocytes # (M) 0.04 k/uL (1.0-4.8); Monocytes # (M) 0.32 k/uL (0-1.0); Neutrophils # (M) 3.64 k/uL (1.3-7.7); Neutrophils % (M) 91 %; Nucleated Red Blood Cells 0 /100 WBC (0-0); Total Cells Counted 100
[2019-02-10 10:44] LABS: Poikilocytosis (M) Present
--- NOTE | 2019-02-10 10:48 | P.PN ---
Subjective Patient is seen in follow-up for acute kidney injury. Creatinine was 4.5-1 admission and is down to 2.97 today. He was noted to have urinary retention and pulled out his Aguilar catheter last night. He also pulled out his IV line. No edema. Oral intake is fair. No vomiting or diarrhea. Vital signs are stable. General: The patient appeared well nourished and normally developed. HEENT: Head exam is unremarkable. Neck is without jugular venous distension. LUNGS: Lungs are clear to auscultation and percussion. Breath sounds decreased. HEART: Rate and Rhythm are regular. First and second heart sounds normal. No murmurs, rubs or gallops. ABDOMEN: Abdominal exam reveals normal bowel sounds. Non-tender and non- distended. No evidence of peritonitis. EXTREMITITES: No clubbing, cyanosis, or edema. Objective - Vital Signs Vital signs: Vital Signs Temp 98.1 F 02/10/19 07:09 Pulse 58 L 02/10/19 07:09 Resp 16 02/10/19 07:09 BP 126/69 02/10/19 07:09 Pulse Ox 97 02/10/19 07:09 Intake & Output 02/09/19 02/10/19 02/10/19 18:59 06:59 18:59 Intake Total 600 600 Output Total 971 1000 Balance -371 -400 Intake: Intake, IV Titration 600 Amount Sodium Chloride 0.9% 1, 600 000 ml @ 75 mls/hr IV . [id number] Rx#:[id number] Oral 600 Output: Urine 400 1000 Post Void Residual 571 Other: Voiding Method Indwelling Catheter Indwelling Catheter # Voids 2 - Labs CBC & Chem 7: 02/10/19 08:27 02/10/19 08:27 Labs: Abnormal Lab Results - Last 24 Hours (Table) 02/09/19 02/09/19 02/10/19 Range/Units 09:40 09:40 08:27 RBC 3.02 L (4.30-5.90) m/uL Hgb 7.2 L (13.0-17.5) gm/dL Hct 24.7 L (39.0-53.0) % MCH 23.9 L (25.0-35.0) pg MCHC 29.2 L (31.0-37.0) g/dL RDW 18.2 H (11.5-15.5) % Plt Count 97 L 116 L (150-450) k/uL Lymphocytes # (Manual) 0.27 L 0.04 L (1.0-4.8) k/uL Chloride (98-107) mmol/L BUN (9-20) mg/dL Creatinine (0.66-1.25) mg/dL Glucose (74-99) mg/dL Iron 5 L (65-175) ug/dL Iron Saturation 1.79 L (15.00-50.00) 02/10/19 Range/Units 08:27 RBC (4.30-5.90) m/uL Hgb (13.0-17.5) gm/dL Hct (39.0-53.0) % MCH (25.0-35.0) pg MCHC (31.0-37.0) g/dL RDW (11.5-15.5) % Plt Count (150-450) k/uL Lymphocytes # (Manual) (1.0-4.8) k/uL Chloride 114 H (98-107) mmol/L BUN 50 H (9-20) mg/dL Creatinine 2.97 H (0.66-1.25) mg/dL Glucose 132 H (74-99) mg/dL Iron (65-175) ug/dL Iron Saturation (15.00-50.00) Microbiology - Last 24 Hours (Table) 02/08/19 14:34 Urine Culture - Preliminary Urine,Voided Gram Neg Bacilli 02/08/19 15:50 Blood Culture - Preliminary Blood No Growth after 24 hours Assessment and Plan Plan: Assessment: 1. Acute kidney injury mostly prerenal improving with IV hydration. Creatinine was 4.52 admission and is 2.97 today. Ultrasound revealed normal sized kidneys with mild right-sided hydronephrosis. Also had mild urinary retention. 2. Chronic kidney disease stage IIIB/4. Creatinine was 2.4 in July 2017. He was 2.12 in February 2018. 3. Metabolic acidosis secondary to acute kidney injury. Better. 4. Mild right-sided hydronephrosis. Monitor. Will need to follow-up with urology outpatient. 5. Anemia of chronic kidney disease. Severe iron deficiency noted. 6. UTI. Maintained on antibiotics. Urine culture positive for gram-negative bacilli. 7. Hypertension with chronic kidney disease. Controlled. Plan: Maintain normal saline at 75 mL an hour. Follow-up urine culture. Continue to monitor serial postvoid residuals. Maintain Flomax. IV iron 3 doses. First dose today. Avoid nephrotoxins. Repeat electrolytes in the morning.
[2019-02-10] MEDS: SODIUM FERRIC GLUCONAT-SUCROSE 125 MG in SODIUM CHLORIDE 0.9% 100 ML IVPB SCH (11:11)
--- NOTE | 2019-02-10 19:10 | PN ---
PROGRESS NOTE DATE OF SERVICE: 02/10/2019 This 88-year-old gentleman who was admitted with acute on chronic renal failure with possible prerenal factors is improving significantly. No chest pain. No palpitations. No fever. Dr. Gilliam is following the patient closely. Abdominal/bladder ultrasound was done today which showed mild right-sided hydronephrosis and enlarged prostate gland. The hemoglobin is 7.2 today and creatinine has improved at 2.97. The urine culture showed gram-negative bacilli. Past medical history reviewed. REVIEW OF SYSTEMS: CARDIOVASCULAR SYSTEM: No angina, palpitations. RESPIRATORY SYSTEM: As mentioned earlier. GI: As mentioned earlier. : No dysuria or retention. NERVOUS SYSTEM: No numbness, weakness. CURRENT MEDICATIONS: Reviewed. They include: 1. Tylenol 650 q.6 p.r.n. 2. Norvasc 5 mg at bedtime. 3. Lipitor 40 mg at bedtime. 4. Rocephin 1 gram IV daily. 5. Aricept 10 mg at bedtime. 6. Iron sulfate. 7. Prozac 10 mg p.o. daily. 8. Heparin 5000 units subcutaneously b.i.d. 9. Narcan. 10.Protonix. 11.Risperdal. 12.Flomax. 13.Vitamin B1. PHYSICAL EXAMINATION: Patient is alert, oriented x3. Pulse 52, blood pressure 121/63, respirations 16, temperature 97.8, pulse ox 98% on room air. HEENT: Conjunctivae normal. Oral mucosa moist. NECK: No jugular venous distention. No carotid bruit. No lymph node enlargement. CARDIOVASCULAR SYSTEM: S1, S2 muffled. RESPIRATORY SYSTEM: Breath sounds diminished at the bases. A few scattered rhonchi and crackles. ABDOMEN: Soft, non-tender. No mass palpable. LEGS: No edema. No swelling. NERVOUS SYSTEM: No focal deficit. LABS: Labs at this time show WBC 4, hemoglobin 7.2, platelets 116. MCV is 81.9. Sodium 143, potassium 3.9, creatinine 2.97. ASSESSMENT: 1. Acute on chronic renal failure with possible prerenal factors. 2. Acute urinary tract infection with sepsis, possibly. 3. Change in mental status, metabolic encephalopathy, acute on chronic, with possible gram-negative bacilli. 4. Abdominal pain for evaluation, possibly secondary to urinary tract infection. 5. Anemia; microcytic anemia of chronic disease and nutritional. 6. History of bladder cancer with radiation treatments. 7. Thrombocytopenia. 8. History of chronic right-sided hydronephrosis. 9. History of glaucoma. 10.History of dementia. 11.Hypertension. 12.Hyperlipidemia. 13.History of prostate disorder with benign prostatic hypertrophy. 14.Mild protein-calorie malnutrition history. 15.Remote history of nicotine dependence. 16.FULL CODE. RECOMMENDATIONS AND DISCUSSION: I recommend to continue current medications, continue with the monitoring, symptomatic treatment. Continue with antibiotics. Continue with IV fluids. Monitor creatinine closely. Await the final culture report. Otherwise, hemoglobin is 7.2. We will monitor the patient closely; if the patient's hemoglobin goes less than 7.7 and the patient is symptomatic, the patient might benefit from transfusion. Otherwise, closely monitor. Closely follow with Nephrology. Further recommendations to follow. NORA / ABRAN: [id number] /
[2019-02-10] MEDS: risperiDONE 0.25 MG TAB PO PRN (22:02)
[2019-02-10] MEDS: amLODIPine 5 MG TAB PO SCH (22:03)
[2019-02-10] MEDS: ATORVASTATIN 40 MG TAB PO SCH (22:03)
[2019-02-10] MEDS: DONEPEZIL 10 MG TAB PO SCH (22:03)
[2019-02-10] MEDS: PANTOPRAZOLE 40 MG TABLET PO SCH (22:03)
[2019-02-10 22:25] VITALS: RESP 18
[2019-02-11] MEDS: FLUoxetine HCL 10 MG CAP PO SCH (07:00)
[2019-02-11] MEDS: HEPARIN SODIUM,PORCINE 5,000 UNIT/ML 1 ML VIAL SQ SCH (07:00)
[2019-02-11] MEDS: SODIUM CHLORIDE 0.9% 1,000 ML IV SCH (07:04)
[2019-02-11] MEDS: TAMSULOSIN 0.4 MG CAP.ER.24H PO SCH (07:04)
[2019-02-11] MEDS: THIAMINE 100 MG TAB PO SCH (07:04)
[2019-02-11 07:11] VITALS: BP 153/73; PULSE 53; TEMP 97.6
[2019-02-11] MEDS: SODIUM FERRIC GLUCONAT-SUCROSE 125 MG in SODIUM CHLORIDE 0.9% 100 ML IVPB SCH (07:36)
--- NOTE | 2019-02-11 09:19 | P.PN ---
Subjective Patient is seen in follow-up for acute kidney injury. Creatinine was 4.52 admission and was down to 2.97 as of yesterday. He was noted to have urinary retention and pulled out his Aguilar catheter. He remains confused. No edema. Oral intake is fair. No vomiting or diarrhea. Vital signs are stable. General: The patient appeared well nourished and normally developed. HEENT: Head exam is unremarkable. Neck is without jugular venous distension. LUNGS: Lungs are clear to auscultation and percussion. Breath sounds decreased. HEART: Rate and Rhythm are regular. First and second heart sounds normal. No murmurs, rubs or gallops. ABDOMEN: Abdominal exam reveals normal bowel sounds. Non-tender and non- distended. No evidence of peritonitis. EXTREMITITES: No clubbing, cyanosis, or edema. Objective - Vital Signs Vital signs: Vital Signs Temp 97.6 F 02/11/19 07:00 Pulse 53 L 02/11/19 07:00 Resp 18 02/11/19 07:00 BP 153/73 02/11/19 07:00 Pulse Ox 97 02/11/19 07:00 Intake & Output 02/10/19 02/11/19 02/11/19 18:59 06:59 18:59 Intake Total 750 800 Balance 750 800 Intake: IV 750 600 Sodium Chloride 0.9% 1, 600 600 000 ml @ 75 mls/hr IV . [id number] [facility] Rx#:[id number] Sodium Ferric Gluconat- 100 Sucrose 125 mg In Sodium Chloride 0.9% 100 ml @ 100 mls/hr IVPB DAILY [facility] Rx#:[id number] cefTRIAXone 1 gm In 50 Sodium Chloride 0.9% 50 ml @ 100 mls/hr IVPB Q24HR [facility] Rx#:[id number] Oral 200 Other: Voiding Method Indwelling Catheter Toilet # Voids 2 1 - Labs CBC & Chem 7: 02/10/19 08:27 02/10/19 08:27 Labs: Abnormal Lab Results - Last 24 Hours (Table) 02/10/19 02/10/19 Range/Units 08:27 08:27 RBC 3.02 L (4.30-5.90) m/uL Hgb 7.2 L (13.0-17.5) gm/dL Hct 24.7 L (39.0-53.0) % MCH 23.9 L (25.0-35.0) pg MCHC 29.2 L (31.0-37.0) g/dL RDW 18.2 H (11.5-15.5) % Plt Count 116 L (150-450) k/uL Lymphocytes # (Manual) 0.04 L (1.0-4.8) k/uL Chloride 114 H (98-107) mmol/L BUN 50 H (9-20) mg/dL Creatinine 2.97 H (0.66-1.25) mg/dL Glucose 132 H (74-99) mg/dL Microbiology - Last 24 Hours (Table) 02/08/19 14:34 Urine Culture - Final Urine,Voided Proteus mirabilis 02/08/19 15:50 Blood Culture - Preliminary Blood No Growth after 48 hours Assessment and Plan Plan: Assessment: 1. Acute kidney injury mostly prerenal improving with IV hydration. Creatinine was 4.52 admission and is down to 2.97 as of yesterday. Ultrasound revealed normal sized kidneys with mild right-sided hydronephrosis. Also had mild urinary retention but patient pulled out his Aguilar catheter. 2. Chronic kidney disease stage IIIB/4. Creatinine was 2.4 in July 2017. It was 2.12 in February 2018. 3. Metabolic acidosis secondary to acute kidney injury. Better. 4. Mild right-sided hydronephrosis. Monitor. Will need to follow-up with urology outpatient. 5. Anemia of chronic kidney disease. Severe iron deficiency noted. 6. UTI. Maintained on antibiotics. Urine culture positive for Proteus. 7. Hypertension with chronic kidney disease. Plan: Maintain normal saline at 75 mL an hour. Continue to monitor serial postvoid residuals. Maintain Flomax. IV iron 3 doses. Second dose today. Avoid nephrotoxins. Repeat electrolytes in the morning. Morning labs pending.
[2019-02-11 10:19] LABS: Calcium 8.6 mg/dL (8.4-10.2); Magnesium 1.7 mg/dL (1.6-2.3); Potassium 3.7 mmol/L (3.5-5.1)
[2019-02-11 10:29] LABS: Anisocytosis Slight; Basophils % (A) 0 %; Eosinophils # (A) 0.2 k/uL (0-0.7); Eosinophils % (A) 4 %; HCT 25.1 % (39.0-53.0); HGB 7.4 gm/dL (13.0-17.5); Hypochromasia Marked; Lymphocytes # (A) 0.4 k/uL (1.0-4.8); Lymphocytes % (A) 7 %; MCH 24.2 pg (25.0-35.0); MCHC 29.5 g/dL (31.0-37.0); MCV 82.2 fL (80.0-100.0); Mean Platelet Volume 7.7; Microcytosis Slight; Monocytes # (A) 0.4 k/uL (0-1.0); Monocytes % (A) 7 %; Neutrophils % (A) 78 %; Platelet Count 131 k/uL (150-450); RBC 3.05 m/uL (4.30-5.90); RDW 18.4 % (11.5-15.5); WBC 5.1 k/uL (3.8-10.6)
[2019-02-11] MEDS: MAGNESIUM SULFATE-D5W PMX 1 GM in DEXTROSE/WATER 1 100ML.BAG IVPB SCH ×2 (11:27→12:48)
--- NOTE | 2019-02-11 22:14 | DS ---
DISCHARGE SUMMARY DATE OF SERVICE: 02/11/2019. FINAL DIAGNOSES: 1. Acute on chronic renal failure with possible prerenal factors. 2. Acute urinary tract infection with sepsis, possibly. 3. Change in mental status, acute metabolic encephalopathy, acute on chronic with possible gram-negative bacilli, possible Proteus mirabilis. 4. Abdominal pain possible secondary to urinary tract infection, improved. 5. Anemia, microcytic anemia of chronic disease and nutritional. 6. History of bladder cancer with radiation treatment. 7. Thrombocytopenia. 8. History of chronic right-sided hydronephrosis. 9. History of glaucoma. 10.History of dementia. 11.Hypertension. 12.History of prostate disorder with benign prostatic hypertrophy. 13.Mild protein calorie malnutrition history. 14.Remote history of nicotine dependence. 15.FULL CODE. DISCHARGE DISPOSITION: The patient is being discharged in stable condition with guarded prognosis. HISTORY OF PRESENT ILLNESS: This 88-year-old gentleman with past medical history of multiple medical problems was admitted with UTI and as well as features of acute on chronic renal failure. Patient received antibiotics and IV fluids. Patient improved significantly. Creatinine improved to 2.5. Nephrology saw the patient and the patient discharged in stable condition with guarded prognosis. On exam, vital signs are stable. Cardiovascular: S1, S2 muffled. Few scattered rhonchi. Abdomen soft. Nervous system: No focal deficits. DISCHARGE ADVICE AND MEDICATIONS: 1. Diet is cardiac diet. 2. Follow up with Dr. Harris in 2-3 days. 3. Follow up with as advised. 4. Follow up with Dr. Gilliam as advised. MEDICATIONS: 1. Aricept 10 mg q.h.s. 2. Flomax 0.4 daily. 3. Lipitor 40 mg q.h.s. 4. Norvasc 5 mg q.h.s. 5. Omeprazole 40 mg q.h.s. 6. Prozac 10 mg p.o. daily. 7. Ceftin 250 mg p.o. b.i.d. for 3 days. 8. Folic acid 1 mg p.o. daily. 9. Multivitamins one p.o. daily. 10.Tylenol 650 q.6h p.r.n. 11.Vitamin B1 100 mg p.o. daily. Once again, the patient is being discharged in stable condition with guarded prognosis. MMODL / IJN: [id number] /
== END 2019-02-11 14:25 | disposition home health service (06) | DRG 871 ==
LOC: EC 12:45 → 4MS4W 15:11 → OBSVTOIN 02-09 10:34
PROVIDERS: ADMIT Hospitalist; ATTEND Hospitalist
DX: A41.59 Other Gram-negative sepsis (principal); G93.41 Metabolic encephalopathy; E87.2 Acidosis; J98.11 Atelectasis; N17.9 Acute kidney failure, unspecified; N39.0 Urinary tract infection, site not specified; D69.6 Thrombocytopenia, unspecified; E86.0 Dehydration; D63.1 Anemia in chronic kidney disease; F03.90 Unspecified dementia, unspecified severity, without behavioral disturbance, psychotic disturbance, mood disturbance, and anxiety; N18.3 Chronic kidney disease, stage 3 (moderate); D50.9 Iron deficiency anemia, unspecified; E78.5 Hyperlipidemia, unspecified; H40.9 Unspecified glaucoma; I12.9 Hypertensive chronic kidney disease with stage 1 through stage 4 chronic kidney disease, or unspecified chronic kidney disease; N40.0 Benign prostatic hyperplasia without lower urinary tract symptoms; Z79.899 Other long term (current) drug therapy; Z88.0 Allergy status to penicillin; Z98.42 Cataract extraction status, left eye; Z98.41 Cataract extraction status, right eye; Z96.1 Presence of intraocular lens; Z87.891 Personal history of nicotine dependence; Z87.440 Personal history of urinary (tract) infections; Z85.51 Personal history of malignant neoplasm of bladder; Z92.3 Personal history of irradiation; Z80.6 Family history of leukemia; Z82.49 Family history of ischemic heart disease and other diseases of the circulatory system
CPT/HCPCS: 36415; 71046; 76770; 80048; 80053; 81001; 82728; 83540; 83550; 83605; 83735; 85025; 85610; 85730; 87040; 87077; 87086; 87186; 93005; 96374; 99285